=== PATIENT | female | born 2005 | race Caucasian/White ===

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

== ENCOUNTER 2023-01-19 13:37 | Emergency (ER) | payer BC, OTHER, SELFPAY ==
[2023-01-19 13:48] VITALS: BP 112/84; PULSE 86; RESP 16; TEMP 36.9; O2SAT 100
--- NOTE | 2023-01-19 13:50 | ED.EAR ---
HPI - Ear Problem General Chief complaint: Ear Stated complaint: HEARING LOSS/PAIN IN L EAR Time Seen by Provider: 01/19/23 13:50 Source: patient, RN notes reviewed and old records reviewed Mode of arrival: ambulatory Limitations: no limitations History of Present Illness HPI Narrative: 17 year old female who presents to [facility] care with complaints of deep pressure sensation to her left ear with decreased hearing and some ringing in her left ear. Patient denies any fevers, chills, sinus congestion or drainage, cough, or any drainage from her ear. Patient reports that she has not been swimming and she does not use Q-tips in her ears. Patient has used some ear wax remover, some tea tree oil and also some ear washes, has not taken any OTC medication for discomfort or used any OTC sinus medications. Patient reports that she has had decreased hearing in her left ear for several weeks but pressure feeling for past 3-4 days. MD Complaint: decreased hearing and other (pressure feeling, ringing) Location: left ear Duration: constant Discharge from ear: Reports no Related Data Home Medications Medication Instructions Recorded Confirmed sertraline 50 mg tablet 200 mg DAILY 07/21/19 10/10/21 lamotrigine 25 mg tablet mg 01/19/23 norethindrone (contraceptive) 0.35 mg 01/19/23 mg tablet trazodone 50 mg tablet mg 01/19/23 Allergies Allergy/AdvReac Type Severity Reaction Status Date / Time Sulfa (Sulfonamide Allergy Severe Swelling Verified 09/21/22 13:56 Antibiotics) of Lip/Tongue/Throat sulfamethoxazole Allergy Severe Swelling Verified 09/21/22 13:56 of Lip/Tongue/Throat Review of Systems Review of Systems: CONSTITUTIONAL: Denies malaise, chills, sweats, or fever. EYES: Denies visual changes, redness, or discharge. ENT: Reports no rhinorrhea, congestion, sinus pain, positive for left otalgia/pressure and no sore throat. CARDIOVASCULAR: Denies chest pain, palpitations, or edema. RESPIRATORY: Reports no cough.? Denies dyspnea. GASTROINTESTINAL: Denies abdominal pain, nausea, vomiting, diarrhea SKIN: Denies rash or itching. MUSCULOSKELETAL: Denies myalgia. NEUROLOGIC: Denies headache. All systems reviewed & are unremarkable except as noted in HPI and below PMFSH Past Medical History Medical History (Updated 01/19/23 @ 14:44 by Dasha Rios NP) Anxiety Depression History of sinus problem Surgical History Surgical History (Updated 01/19/23 @ 14:43 by Dasha Rios NP) History of tonsillectomy and adenoidectomy Social History Social History Smoking status: Never smoker Alcohol intake: never Substance use: never Substance use type: does not use Lack of Transportation: YES Lack of Food: Never True Current Housing: I Have Housing Concerned About Future Housing: No Difficulty Paying Gas/Electric Bills: No Difficulty Paying for Meds: No Currently Unemployed: YES Education: High School Diploma/GED Difficulty w/ Childcare or Family Care: No Gender identity (if verbalized by the patient): Female Comments At time of signature, agree with nursing past medical, surgical, social and family history. There is no relevant family history pertinent to the presenting complaint Exam Narrative: GENERAL: Well-appearing, well-nourished, and in no acute distress. HEAD: Normocephalic EYES: PERRLA, conjunctivae clear ENT: Nares clear, turbinates edematous and erythematous, clear discharge. Mucous membranes moist. TM pearly paulson with dull light reflex bilaterally; Left tragal tenderness, left ear canal red,fluid left TM. Oropharynx erythematous without lesions. Tonsils not present and throat without exudate, no drooling, no hoarseness, no trismus, uvula midline.post nasal drainage noted. NECK: Supple. No lymphadenopathy CHEST: Clear to auscultation, breath sounds equal. No wheezing, rhonchi, ral
== END 2023-01-19 14:09 | disposition home or self-care (01) ==
PROVIDERS: Emergency Provider Registered Nurse
DX: H69.92 Unspecified Eustachian tube disorder, left ear (principal); H60.502 Unspecified acute noninfective otitis externa, left ear; F41.9 Anxiety disorder, unspecified; F32.A Depression, unspecified
CPT/HCPCS: 99213; G0463

== ENCOUNTER 2023-04-06 13:21 | Emergency (ER) | payer BC, OTHER, SELFPAY ==
[2023-04-06] VITALS (9 sets, daily range): BP systolic 101–120; BP diastolic 60–91; PULSE 82–96; RESP 12–20; TEMP 36.9; O2SAT 99–100
--- NOTE | ~2023-04-06 | CT_ITS ---
EXAMINATION: CT brain wo con DATE: 04/06/2023 14:31 INDICATION: Seizure TECHNIQUE: Computed tomography (CT) of the head was performed without intravenous contrast. Sagittal and coronal reconstructions were performed. The mA was adjusted according to patient size. Iterative reconstruction technique was employed. The dose-length product was 605.33 mGy-cm. COMPARISON: head CT dated 05/31/22 FINDINGS: No acute intracranial hemorrhage, acute infarction or abnormal extra axial fluid collection. Ventricl es are normal and symmetric. No mass/mass effect. The orbits, paranasal sinuses and mastoid air cells are normal. IMPRESSION: 1. Normal head CT. Reviewed, dictated and finalized at location A. IMPRESSION: 1. Normal head CT.
--- NOTE | 2023-04-06 14:18 | ED.GENADULT ---
HPI - General Adult General Chief complaint: Seizure Stated complaint: tonic/clonic seizure Time Seen by Provider: 04/06/23 13:31 History of Present Illness HPI narrative: 18-year-old female history of absence seizures presents emergency department after having a suspected tonic-clonic seizure. Patient was in class when she had a seizure yesterday and declined transport to EMS. Patient had a second seizure today in class. Patient states that she was lowered to the ground and did not hit her head. Upon arrival to the emergency department patient is still postictal but denies any complaints. Related Data Home Medications Medication Instructions Recorded Confirmed sertraline 50 mg tablet 150 mg PO DAILY 07/21/19 01/19/23 lamotrigine 25 mg tablet 50 mg PO DAILY 01/19/23 01/19/23 norethindrone (contraceptive) 0.35 0.35 mg PO DAILY 01/19/23 01/19/23 mg tablet trazodone 50 mg tablet 25 mg PO DAILY 01/19/23 01/19/23 Allergies Allergy/AdvReac Type Severity Reaction Status Date / Time Sulfa (Sulfonamide Allergy Severe Swelling Verified 09/21/22 13:56 Antibiotics) of Lip/Tongue/Throat sulfamethoxazole Allergy Severe Swelling Verified 09/21/22 13:56 of Lip/Tongue/Throat Review of Systems Review of Systems: All systems reviewed & are unremarkable except as noted in HPI and below PMFSH Past Medical History Medical History (Updated 04/06/23 @ 16:59 by Marcel Hoffmann MD) Anxiety Depression History of sinus problem Surgical History Surgical History (Updated 01/19/23 @ 14:43 by Dasha Rios NP) History of tonsillectomy and adenoidectomy Social History Social History Smoking status: Never smoker Alcohol intake: never Substance use: never Substance use type: does not use Lack of Transportation: YES Lack of Food: Never True Current Housing: I Have Housing Concerned About Future Housing: No Difficulty Paying Gas/Electric Bills: No Difficulty Paying for Meds: No Currently Unemployed: YES Education: High School Diploma/GED Difficulty w/ Childcare or Family Care: No Gender identity (if verbalized by the patient): Female Exam Narrative: APPEARANCE: Well appearing, no pain, no distress, well-nourished. HEAD: normocephalic, atraumatic. EYES: PERRLA/EOMI, conjunctivae clear. NOSE: Normal no drainage EARS:TMS clear with good light reflex. THROAT: Pharynx clear, no exudate. NECK: Supple. No adenopathy, no masses. RESPIRATORY: Airway patent, respirations nonlabored. Clear to auscultation bilaterally, no rales, rhonchi, wheezing. CARDIOVASCULAR: Regular rate and rhythm without murmurs rubs or gallops. ABDOMINAL: Soft, nontender, nondistended, normal bowel sounds MUSCULOSKELETAL: Moves all extremities. Strength/ROM intact, No edema, No calf tenderness. NEURO: Alert but mildly confused. Cranial nerves II through XII intact. Good gait. Good coordination SKIN: Warm, dry. Normal Color Course Course Emergency Course: 18-year-old female present emergency department for evaluation of seizure. Patient does feel back to her baseline. Patient is afebrile with no leukocytosis and a stable hemoglobin. No significant electrolyte abnormalities. Patient's lamotrigine level is pending. Head CT showed no acute abnormalities. On reevaluation patient is more alert and appropriate. Patient states she is still having some soreness was offered medication for pain control but states that she prefers to be discharged to home. Vital Signs Vital signs: Vital Signs Temperature 98.4 F 04/06/23 13:20 Pulse Rate 84 04/06/23 13:20 Respiratory Rate 16 04/06/23 13:20 Blood Pressure 120/80 04/06/23 13:20 Pulse Oximetry 99 04/06/23 13:20 Oxygen Delivery Room Air 04/06/23 13:20 Temperature 98.4 F 04/06/23 13:20 Pulse Rate 82 04/06/23 14:32 Respiratory Rate 14 04/06/23 14:32 Blood Pressure 101/60
[2023-04-06 14:19] LABS: Basophils Absolute Auto 0.1 K/mm3 (0.0-0.1); Basophils Percent Auto 0.9 % (0.2-1.2); Eosinophils Absolute Auto 0.1 K/mm3 (0-0.3); Eosinophils Percent Auto 1.8 % (0-4.4); Hematocrit 43.9 % (37.0-47.0); Hemoglobin 14.4 g/dL (12.0-15.0); Immature Granulocyte Absolute 0.02 K/mm3 (0.00-0.031); Immature Granulocyte Percent A 0.3 % (0-0.5); Lymphocytes Absolute Auto 1.75 K/mm3 (0.9-3.2); Lymphocytes Percent Auto 26.3 % (18.3-44.2); Mean Corpuscular HGB Conc 32.8 g/dl (32-36); Mean Corpuscular Hemoglobin 30.3 pg (26-34); Mean Corpuscular Volume 92.2 fl (80-100); Mean Platelet Volume 10.7 fl (7.4-10.4); Monocytes Absolute Auto 0.6 K/mm3 (0.1-0.6); Monocytes Percent Auto 9.3 % (2.6-8.5); Neutrophils Absolute Auto 4.1 K/mm3 (1.3-6.7); Neutrophils Percent Auto 61.4 % (45.5-73.1); Platelet Count Result 303 k/mm3 (150-375); Red Blood Count 4.76 M/mm3 (4.2-5.4); Red Cell Distribution Width 12.2 % (11.5-14.5); White Blood Count 6.7 K/mm3 (4.5-10.0)
[2023-04-06 14:32] LABS: Alanine Aminotransferase 16 U/L (6-35); Albumin Level 4.7 g/dL (3.5-5.1); Alkaline Phosphatase 57 U/L (38-126); Anion Gap 7 mmol/L (8-16); Aspartate Amino Transferase 21 U/L (14-36); Bilirubin,Total 0.5 mg/dL (0.2-1.3); Blood Urea Nitrogen 7 mg/dL (7-17); Calcium 8.9 mg/dL (8.4-10.2); Carbon Dioxide 27 mmol/L (22-30); Chloride 103 mmol/L (98-107); Estimated CRCL calculation 87 ml/min; Estimated Glomerular Filt Rate > 60; Glucose 92 mg/dL (65-110); Potassium 3.8 mmol/L (3.4-5.0); Sodium 137 mmol/L (137-145)
[2023-04-06] MEDS: SODIUM CHLORIDE 0.9% IV 1,000 ML 999 ML IV CONT (14:38)
[2023-04-09 14:43] LABS: Lamotrigine Lamictal 0.9 mcg/mL (2.5-15.0)
== END 2023-04-06 17:07 | disposition home or self-care (01) ==
PROVIDERS: Emergency Provider Emergency Medicine; PCP Pediatrics
DX: G40.A09 Absence epileptic syndrome, not intractable, without status epilepticus (principal); F41.9 Anxiety disorder, unspecified; F32.A Depression, unspecified
CPT/HCPCS: 36415; 70450; 80053; 80175; 85025; 99284; J7030

== ENCOUNTER 2023-04-10 13:57 | Emergency (ER) | payer BC, OTHER, SELFPAY ==
[2023-04-10 13:55] VITALS: BP 115/75; PULSE 92; RESP 16; TEMP 36.7; O2SAT 100
[2023-04-10 14:01] VITALS: PULSE 83; O2SAT 99
[2023-04-10 15:10] VITALS: BP 94/55; PULSE 79; RESP 16; O2SAT 99
--- NOTE | 2023-04-10 15:35 | ED.SEIZURE ---
HPI - Seizure General Chief Complaint: Seizure Stated Complaint: seizure Time Seen by Provider: 04/10/23 15:24 History of Present Illness HPI Narrative: Pt had seizure today while sitting in class. Pt says she had seizure last week as well and was seen here. Pt takes lamotrigine and has not missed any doses. Pt feels fine now. Seizure History: Yes Related Data Home Medications Medication Instructions Recorded Confirmed sertraline 50 mg tablet 150 mg PO DAILY 07/21/19 01/19/23 lamotrigine 25 mg tablet 50 mg PO DAILY 01/19/23 01/19/23 norethindrone (contraceptive) 0.35 0.35 mg PO DAILY 01/19/23 01/19/23 mg tablet trazodone 50 mg tablet 25 mg PO DAILY 01/19/23 01/19/23 Allergies Allergy/AdvReac Type Severity Reaction Status Date / Time Sulfa (Sulfonamide Allergy Severe Swelling Verified 04/10/23 14:04 Antibiotics) of Lip/Tongue/Throat sulfamethoxazole Allergy Severe Swelling Verified 04/10/23 14:04 of Lip/Tongue/Throat Review of Systems Review of Systems: All systems reviewed & are unremarkable except as noted in HPI and below PMFSH Past Medical History Medical History (Updated 04/10/23 @ 17:10 by Jud Yeboah III, DO) Anxiety Depression History of sinus problem Surgical History Surgical History (Updated 01/19/23 @ 14:43 by Dasha Rios NP) History of tonsillectomy and adenoidectomy Social History Social History Smoking status: Never smoker Alcohol intake: never Substance use: never Substance use type: does not use Lack of Transportation: YES Lack of Food: Never True Current Housing: I Have Housing Concerned About Future Housing: No Difficulty Paying Gas/Electric Bills: No Difficulty Paying for Meds: No Currently Unemployed: YES Education: High School Diploma/GED Difficulty w/ Childcare or Family Care: No Gender identity (if verbalized by the patient): Female Exam Const: General: healthy appearing Nutritional Appearance: well nourished Orientation/consciousness: patient oriented x3 Limitations: no limitations Eyes: Pupils: Equal, round and reactive pupils present EOM: EOMs intact bilaterally Resp: Effort & Inspection: normal respiratory effort Auscultation: clear to auscultation bilaterally Cardio: Rate: regular rate Rhythm: regular rhythm GI: GI Palp: Yes Soft to palpation Auscultation: normal bowel sounds Skin: General skin exam: normal color Neuro: General: patient oriented x3, moves all extremities, no meningeal signs, no focal motor deficits and CN's II-XI intact bilaterally Cranial nerves: Yes Nystagmus not present Speech: normal speech Gait exam (Neuro): Normal gait present Extrem: General: normal to inspection Psych: Appearance: grossly normal Mental Status: mental status grossly normal Affect: normal affect Attitude: cooperative Course Vital Signs Vital signs: Vital Signs Temperature 98.0 F 04/10/23 13:55 Pulse Rate 92 04/10/23 13:55 Respiratory Rate 16 04/10/23 13:55 Blood Pressure 115/75 04/10/23 13:55 Pulse Oximetry 100 04/10/23 13:55 Oxygen Delivery Room Air 04/10/23 13:55 Temperature 98.0 F 04/10/23 13:55 Pulse Rate 78 04/10/23 17:31 Respiratory Rate 16 04/10/23 17:31 Blood Pressure 102/66 04/10/23 17:31 Pulse Oximetry 98 04/10/23 17:31 Oxygen Delivery Room Air 04/10/23 14:01 MDM - Seizure MDM Narrative Medical decision making narrative: could be seizure or pseudoseizure as pt being treated primarily by psychiatrist but is on seizure meds so will check labs. labs look ok so ok to d/c Lab Data 04/10/23 16:32 04/10/23 16:32 Labs: Lab Results 04/10/23 Range/Units 16:32 WBC 10.6 H (4.5-10.0) K/mm3 RBC 4.75 (4.2-5.4) M/mm3 Hgb 14.2 (12.0-15.0) g/dL Hct 43.4 (37.0-47.0) % MCV 91.4 (80-100) fl MCH 29.9 (26-34) pg MCHC 32.7 (32-36)
--- NOTE | 2023-04-10 16:27 | ECG_ITS ---
Measurements Intervals [place] Rate: 86 P: 56 [place]: 151 QRS: 43 QRSD: 84 T: 37 QT: 342 QTc: 411 Interpretive Statements SINUS RHYTHM COMPARED TO ECG 12/14/2022 02:15:23 NO SIGNIFICANT CHANGES Electronically Signed On 04-11-2023 19:43:48 CDT by Jasmin Harry M.D.
[2023-04-10 16:37] LABS: Basophils Absolute Auto 0.1 K/mm3 (0.0-0.1); Basophils Percent Auto 0.7 % (0.2-1.2); Eosinophils Absolute Auto 0.3 K/mm3 (0-0.3); Eosinophils Percent Auto 2.9 % (0-4.4); Hematocrit 43.4 % (37.0-47.0); Hemoglobin 14.2 g/dL (12.0-15.0); Immature Granulocyte Absolute 0.02 K/mm3 (0.00-0.031); Immature Granulocyte Percent A 0.2 % (0-0.5); Lymphocytes Absolute Auto 2.45 K/mm3 (0.9-3.2); Lymphocytes Percent Auto 23.2 % (18.3-44.2); Mean Corpuscular HGB Conc 32.7 g/dl (32-36); Mean Corpuscular Hemoglobin 29.9 pg (26-34); Mean Corpuscular Volume 91.4 fl (80-100); Monocytes Absolute Auto 0.7 K/mm3 (0.1-0.6); Monocytes Percent Auto 6.3 % (2.6-8.5); Neutrophils Percent Auto 66.7 % (45.5-73.1); Platelet Count Result 318 k/mm3 (150-375); Red Blood Count 4.75 M/mm3 (4.2-5.4); Red Cell Distribution Width 12.3 % (11.5-14.5); White Blood Count 10.6 K/mm3 (4.5-10.0)
[2023-04-10 16:49] LABS: Alanine Aminotransferase 18 U/L (6-35); Albumin Level 4.9 g/dL (3.5-5.1); Alkaline Phosphatase 59 U/L (38-126); Anion Gap 9 mmol/L (8-16); Aspartate Amino Transferase 22 U/L (14-36); Bilirubin,Total 0.5 mg/dL (0.2-1.3); Blood Urea Nitrogen 8 mg/dL (7-17); Calcium 9.4 mg/dL (8.4-10.2); Carbon Dioxide 27 mmol/L (22-30); Chloride 101 mmol/L (98-107); Estimated CRCL calculation 110 ml/min; Estimated Glomerular Filt Rate > 60; Glucose 91 mg/dL (65-110); Potassium 3.7 mmol/L (3.4-5.0); Sodium 137 mmol/L (137-145)
[2023-04-10 17:31] VITALS: BP 102/66; PULSE 78; RESP 16; O2SAT 98
== END 2023-04-10 17:32 | disposition home or self-care (01) ==
PROVIDERS: Emergency Provider Emergency Medicine; PCP Pediatrics
DX: G40.909 Epilepsy, unspecified, not intractable, without status epilepticus (principal); F41.9 Anxiety disorder, unspecified; F32.A Depression, unspecified
CPT/HCPCS: 36415; 80053; 85025; 93005; 99284

== ENCOUNTER 2023-09-08 13:22 | Emergency (ER) | payer BC, OTHER, SELFPAY ==
--- NOTE | ~2023-09-08 | CT_ITS ---
EXAMINATION: CT brain wo con INDICATION: Headache COMPARISON: 04/06/2023 TECHNIQUE: Standard unenhanced head CT. The dose-length product (DLP) was 605.33 mGy-cm. The mA was a djusted according to patient size. Iterative reconstruction technique was employed. FINDINGS: No intracranial hemorrhage, acute infarction, or abnormal mass lesion. The ventricles are n ormal. No abnormal mass effect or midline shift. The paulson-white matter differentiation is normal. The basal cisterns are patent. The orbits are normal. The paranasal sinuses, mastoids and calvarium are normal. IMPRESSION: 1. No acute intracranial abnormality. Reviewed, dictated and finalized at location F.
[2023-09-08 13:30] VITALS: BP 123/75; PULSE 93; RESP 18; TEMP 36.7; O2SAT 100
--- NOTE | 2023-09-08 15:03 | ED.HA ---
HPI - Headache General Chief Complaint: Headache Stated Complaint: migraine x5 days Time Seen by Provider: 09/08/23 15:03 Source: patient Mode of arrival: ambulatory Limitations: no limitations History of Present Illness HPI Narrative: Patient is a 18 y/o female who presents to the ED with c/o migraine VELEZ. Patient reports having persistent VELEZ for the past 5 days. She has hx of migraines, current VELEZ feels similar. Typically has migraines a few times per year. She has been taking Ubelry and Advil w/o relief. Took 2 advil this morning at 10 am. Pain is diffusely throughout head. Reports nausea, photophobia/phonophobia, mild dizziness. Denies focal weakness or numbness. Denies syncope. Denies vomiting. Denies vision changes. Patient does have history of seizure disorder and has up to 10 seizures per month. She takes lamotrigine daily and reports compliance with this. She does report having a seizure last night and states it lasted approximately 5 minutes. Was witnessed by family member. States her eyes were open during the seizure which is not normal for her. Patient sees Dr. Alejandro with Neurology. Related Data Home Medications Medication Instructions Recorded Confirmed sertraline 50 mg tablet 150 mg PO DAILY 07/21/19 01/19/23 lamotrigine 25 mg tablet 50 mg PO DAILY 01/19/23 01/19/23 norethindrone (contraceptive) 0.35 0.35 mg PO DAILY 01/19/23 01/19/23 mg tablet trazodone 50 mg tablet 25 mg PO DAILY 01/19/23 01/19/23 Allergies Allergy/AdvReac Type Severity Reaction Status Date / Time Sulfa (Sulfonamide Allergy Severe Swelling Verified 09/08/23 15:17 Antibiotics) of Lip/Tongue/Throat sulfamethoxazole Allergy Severe Swelling Verified 09/08/23 15:17 of Lip/Tongue/Throat Review of Systems Review of Systems: CONSTITUTIONAL: Denies fever, chills, or sweats. ENT: see HPI. GASTROINTESTINAL: See HPI. MUSCULOSKELETAL: Denies back pain, Neck pain. NEUROLOGIC: see HPI. All systems reviewed & are unremarkable except as noted in HPI and below PMFSH Past Medical History Medical History (Updated 09/08/23 @ 16:51 by Jaelyn Bustillos PA-C) Anxiety Depression History of sinus problem Migraines Seizure disorder Surgical History Surgical History History of tonsillectomy and adenoidectomy Social History Social History Smoking status: Never smoker Alcohol intake: never Substance use: never Substance use type: does not use Lack of Transportation: YES Lack of Food: Never True Current Housing: I Have Housing Concerned About Future Housing: No Difficulty Paying Gas/Electric Bills: No Difficulty Paying for Meds: No Currently Unemployed: YES Education: High School Diploma/GED Difficulty w/ Childcare or Family Care: No Gender identity (if verbalized by the patient): Female Exam Narrative: GENERAL: Well appearing, well-nourished, non-toxic, in no acute distress. HEAD: Normocephalic, atraumatic. EYES: PERRL/EOMI, conjunctivae clear bilaterally. No nystagmus. NECK: Supple. No meningeal signs. RESPIRATORY: Airway patent, respirations nonlabored. CARDIOVASCULAR: Regular rate and rhythm MUSCULOSKELETAL: Moves all extremities. No gross deformities. SKIN: Warm, dry, normal color. No rashes. NEURO: A&O X3. Speech clear. Follows commands. CN II-XII intact. Sensation grossly intact. Steady gait. No ataxic movements. Strength 5/5 in upper and lower extremities bilaterally. PSYCHIATRIC: Appropriate mood and affect. Normal interaction. Course Vital Signs Vital signs: Vital Signs Temperature 98.0 F 09/08/23 13:30 Pulse Rate 93 09/08/23 13:30 Respiratory Rate 18 09/08/23 13:30 Blood Pressure 123/75 09/08/23 13:30 Pulse Oximetry 100 09/08/23 13:30 Oxygen Delivery Room Air 09/08/23 13:30 Temperature 98.0 F 08/18
[2023-09-08] MEDS: ACETAMINOPHEN 500 MG TABLET 1000 MG PO (15:33)
[2023-09-08] MEDS: SODIUM CHLORIDE 0.9% IV 1,000 ML 999 ML IV CONT (15:34)
[2023-09-08] MEDS: diphenhydrAMINE HCl INJ 50 MG/ML VIAL 25 MG IV PUSH (15:35)
[2023-09-08] MEDS: KETOROLAC 30 MG/ML VIAL (*BKC) IV PUSH (15:36)
[2023-09-08] MEDS: dexAMETHasone SOD PHOS INJ 10 MG/ML 1 ML VIAL IV PUSH (15:37)
[2023-09-08] MEDS: METOCLOPRAMIDE HCL INJ 10 MG/2 ML VIAL IV PUSH (15:37)
[2023-09-08 16:01] VITALS: BP 125/66; PULSE 84; RESP 20; O2SAT 100
[2023-09-08 17:07] VITALS: BP 116/72; PULSE 90; RESP 18; TEMP 36.6; O2SAT 100
== END 2023-09-08 17:07 | disposition home or self-care (01) ==
LOC: ANHED 16:56
PROVIDERS: Emergency Provider Physician Assistant; PCP Family Medicine
DX: G43.909 Migraine, unspecified, not intractable, without status migrainosus (principal); G40.909 Epilepsy, unspecified, not intractable, without status epilepticus; F41.9 Anxiety disorder, unspecified; F32.A Depression, unspecified
CPT/HCPCS: 70450; 96361; 96374; 96375; 99284; A9270; J1100; J1200; J1885; J2765; J7030

== ENCOUNTER 2023-10-06 23:00 | Emergency (ER) | payer BC, OTHER, SELFPAY ==
[2023-10-06] VITALS (8 sets, daily range): BP systolic 113–132; BP diastolic 82–90; PULSE 76–97; RESP 13–19; TEMP 36.8; O2SAT 100
--- NOTE | ~2023-10-06 | XR_ITS ---
EXAMINATION: XR chest 1V portable 10/07/2023 00:55 INDICATION: Chest pain PROCEDURE: AP portable chest COMPARISON: No prior studies for comparison. FINDINGS: The lungs are clear. The cardiomediastinal silhouette is within normal limits. There are no pleural effusions. There is no pneumothorax suspected. IMPRESSION: 1: NO ACUTE CARDIOPULMONARY DISEASE. Reviewed, dictated and finalized at location A.
--- NOTE | 2023-10-06 23:32 | ECG_ITS ---
SEE SCANNED COPY FOR CONFIRMED REPORT MTDD
[2023-10-07] VITALS (18 sets, daily range): BP systolic 108–128; BP diastolic 75–83; PULSE 71–99; RESP 11–31; O2SAT 90–100
--- NOTE | 2023-10-07 00:06 | ED_ITS ---
HPI - General Adult General Chief complaint: Unspecified Stated complaint: numbness Time Seen by Provider: 10/06/23 23:30 History of Present Illness HPI narrative: This is a 18-year-old the female transitioning to male, who presents to emergency department complaining of 3 days worth of pressure like chest pain. Patient denies any recent trauma. He states the pain is aggravated by physical exertion and by sitting forward. The pain has been constant and waxing and waning. Complains of some dyspnea without obvious aggravation 5 physical exertion. He denies recent illness and has no other complaints at this time. Related Data Home Medications Medication Instructions Recorded Confirmed sertraline 50 mg tablet 150 mg PO DAILY 07/21/19 01/19/23 lamotrigine 25 mg tablet 50 mg PO DAILY 01/19/23 01/19/23 norethindrone (contraceptive) 0.35 0.35 mg PO DAILY 01/19/23 01/19/23 mg tablet trazodone 50 mg tablet 25 mg PO DAILY 01/19/23 01/19/23 Allergies Allergy/AdvReac Type Severity Reaction Status Date / Time Sulfa (Sulfonamide Allergy Severe Swelling Verified 09/08/23 15:17 Antibiotics) of Lip/Tongue/Throat sulfamethoxazole Allergy Severe Swelling Verified 09/08/23 15:17 of Lip/Tongue/Throat Review of Systems Review of Systems: CONSTITUTIONAL: Denies fever, chills, or sweats. ENT: Denies rhinorrhea, congestion, sore throat, or otalgia. CARDIOVASCULAR: Chest pain Denies palpitations, or edema. RESPIRATORY: Denies cough or dyspnea. GASTROINTESTINAL: Denies abdominal pain, nausea, vomiting, or diarrhea. GENITOURINARY: LMP 2 weeks ago. Denies dysuria or hematuria. SKIN: Denies rash or itching. MUSCULOSKELETAL: Denies back pain, joint pain, or myalgia. NEUROLOGIC: Denies headache, numbness, dizziness, or weakness. PSYCHIATRIC: Denies anxiety or depression. [facility] Past Medical History Medical History Anxiety Depression History of sinus problem Migraines Seizure disorder Surgical History Surgical History History of tonsillectomy and adenoidectomy Social History Social History Smoking status: Never smoker Alcohol intake: never Substance use: never Substance use type: does not use Lack of Transportation: YES Lack of Food: Never True Current Housing: I Have Housing Concerned About Future Housing: No Difficulty Paying Gas/Electric Bills: No Difficulty Paying for Meds: No Currently Unemployed: YES Education: High School Diploma/GED Difficulty w/ Childcare or Family Care: No Gender identity (if verbalized by the patient): Female Exam Narrative: GENERAL: Well-developed, well-nourished, and in no acute distress. HEAD: Normocephalic, atraumatic. EYES: PERRLA and EOMI. ENT: Nares clear, no rhinorrhea or epistaxis. Mucous membranes moist. Oropharynx without tonsillar hypertrophy exudate or other lesions. NECK: Supple. No JVD CHEST: Clear to auscultation. No respiratory distress. No wheezes rales or rhonchi. Pain reproducible on palpation. HEART: Regular rate and rhythm. No murmur or rub heard. Normal peripheral pulses. ABDOMEN: Soft, nontender, nondistended, normal active bowel sounds. EXTREMITIES: Normal range of motion. No edema. SKIN: Warm, dry, no rash. NEURO: Alert and oriented x3. No focal deficit. Moving all 4 limbs spontaneously PSYCH: Normal mood and affect. Course Course Emergency Course: 23:50 - Bedside cardiac ultrasound by me in the parasternal long-axis view does not show pericardial effusion. EPSS appears normal. 01:58 - CBC demonstrates slightly elevated hemoglobin of 15.7 but is otherwise unremarkable. Coags within normal limits. Chemistries unremarkable with a negative troponin. Heart score 1. Chest x-ray by my interpretation not concerning for acute cardiopulmonary process. I suspect the patient's symptoms may be related to pericarditis. Will discharge with naproxen and recommendation for primary care follow-up. I discussed the findings and recommendations with the patient. Discussed return and emergency precautions including signs/symptoms of ACS and respiratory distress. The patient voiced understanding and agreement with the plan. All questions answered to his satisfaction. Vital Signs Vital signs: Vital Signs Temperature 98.2 F 10/06/23 23:05 Pulse Rate 97 10/06/23 23:05 Respiratory Rate 18 10/06/23 23:05 Blood Pressure 132/90 10/06/23 23:05 Pulse Oximetry 100 10/06/23 23:05 Oxygen Delivery Room Air 10/06/23 23:05 Temperature 98.2 F 10/06/23 23:05 Pulse Rate 81 10/07/23 01:55 Respiratory Rate 14 10/07/23 01:55 Blood Pressure 128/79 10/07/23 01:55 Pulse Oximetry 100 10/07/23 01:55 Oxygen Delivery Room Air 10/06/23 23:05 Medical Decision Making MDM Narrative Medical decision making narrative: Plan: Labs, imaging, EKG, troponin, pain control, bedside ultrasound, reassess Differential Diagnosis Differential Diagnosis: Pericarditis, ACS, costochondritis, pneumothorax, metabolic abnormality, other Vital Signs Vital Signs: Vital Signs Temperature 98.2 F 10/06/23 23:05 Pulse Rate 97 10/06/23 23:05 Respiratory Rate 18 10/06/23 23:05 Blood Pressure 132/90 10/06/23 23:05 Pulse Oximetry 100 10/06/23 23:05 Oxygen Delivery Room Air 10/06/23 23:05 Temperature 98.2 F 10/06/23 23:05 Pulse Rate 81 10/07/23 01:55 Respiratory Rate 14 10/07/23 01:55 Blood Pressure 128/79 10/07/23 01:55 Pulse Oximetry 100 10/07/23 01:55 Oxygen Delivery Room Air 10/06/23 23:05 Lab Data 10/07/23 00:23 10/07/23 00:23 Labs: Lab Results 10/07/23 Range/Units 00:23 WBC 6.9 (4.5-10.0) K/mm3 RBC 5.25 (4.2-5.4) M/mm3 Hgb 15.7 H (12.0-15.0) g/dL Hct 47.0 (37.0-47.0) % MCV 89.5 (80-100) fl MCH 29.9 (26-34) pg MCHC 33.4 (32-36) g/dl RDW 12.6 (11.5-14.5) % Plt Count 279 (150-375) k/mm3 MPV 11.6 H (7.4-10.4) fl Immature Gran % (Auto) 0.4 (0-0.5) % Neut % (Auto) 53.5 (45.5-73.1) % Lymph % (Auto) 33.0 (18.3-44.2) % [place] % (Auto) 10.2 H (2.6-8.5) % Eos % (Auto) 2.0 (0-4.4) % Baso % (Auto) 0.9 (0.2-1.2) % Lymph # (Auto) 2.26 (0.9-3.2) K/mm3 [place] # (Auto) 0.7 H (0.1-0.6) K/mm3 Eos # (Auto) 0.1 (0-0.3) K/mm3 Baso # (Auto) 0.1 (0.0-0.1) K/mm3 Abs Immat Gran (auto) 0.03 (0.00-0.031) K/mm3 Absolute Neuts (auto) 3.7 (1.3-6.7) K/mm3 Absolute Nucleated RBC 0.000 (0.0-0.012) K/mm3 Nucleated RBC % 0.0 (0.0-0.2) % PT 12.8 (11.1-14.7) Seconds INR 0.9 Sodium 139 (137-145) mmol/L Potassium 4.1 (3.4-5.0) mmol/L Chloride 105 (98-107) mmol/L Carbon Dioxide 26 (22-30) mmol/L Anion Gap 8 (4-12) mmol/L BUN 8 (7-17) mg/dL Creatinine 0.70 (0.7-1.0) mg/dL Estim Creat Clear Calc 99 ml/min Estimated GFR > 60 (59 - ) Glucose 107 (65-110) mg/dL Calcium 9.6 (8.4-10.2) mg/dL Total Bilirubin 0.4 (0.2-1.3) mg/dL AST 25 (14-36) U/L ALT 24 (6-35) U/L Alkaline Phosphatase 70 (38-126) U/L Troponin I < 0.012 (0.000-0.034) ng/mL Total Protein 8.0 (6.3-8.2) g/dL Albumin 4.8 (3.5-5.1) g/dL Lipase 60 (23-300) U/L ECG Data EKG #1: Attestation: I personally reviewed and interpreted this ECG as follows: ECG completion date: 10/07/23 ECG completion time: 23:35 Prior ECG tracings: not available for review Interpretation: Sinus rhythm with 1 PAC, rate 70, normal axis, no ST segment elevations or T- wave inversions concerning for ischemia, normal intervals with QTC of 382. No change based on interpretation of previous EKG done March 2023. I am unable to view the previous EKG due to technical difficulties. Discharge Plan Discharge Clinical Impression: Chest pain Qualifiers: Chest pain type: unspecified Qualified Code(s): R07.9 - Chest pain, unspecified Pericarditis Qualifiers: Pericarditis type: unspecified type Chronicity: unspecified Qualified Code(s): I31.9 - Disease of pericardium, unspecified Patient Disposition: Home, Self-Care Condition: Stable Instructions: Antibiotic Form, Acute Pericarditis (ED) Additional Instructions: You were seen in the emergency department. I suspect your symptoms are related to pericarditis. I recommend following up with your primary care doctor. If you develop new or worsening chest pain, loss of consciousness, difficulty miguel thing, or if you have other emergent concerns for life, limb, or eyesight, return to the emergency department. Patient Language: Swedish Prescriptions: New naproxen 500 mg tablet 500 mg PO BID 7 Days Qty: 14 0RF No Action sertraline 50 mg tablet 150 mg PO DAILY trazodone 50 mg tablet 25 mg PO DAILY lamotrigine 25 mg tablet 50 mg PO DAILY norethindrone (contraceptive) 0.35 mg tablet 0.35 mg PO DAILY methylprednisolone [Medrol (Doe)] 4 mg tablets,dose pack See Rx Instructions .ROUTE .COMPLEX Qty: 21 0RF Rx Instructions: orally per package directions ofloxacin 0.3 % drops 5 drp LEFT EAR BID 7 Days Qty: 10 0RF Follow-up/Referrals: Omar,MD Michael [Primary Care Provider] - 2 Weeks Time of Disposition: 02:02
[2023-10-07] MEDS: ASPIRIN 81 MG CHEWABLE TABLET 324 MG PO (00:26)
[2023-10-07 00:35] LABS: Basophils Absolute Auto 0.1 K/mm3 (0.0-0.1); Basophils Percent Auto 0.9 % (0.2-1.2); Eosinophils Absolute Auto 0.1 K/mm3 (0-0.3); Hemoglobin 15.7 g/dL (12.0-15.0); Immature Granulocyte Absolute 0.03 K/mm3 (0.00-0.031); Immature Granulocyte Percent A 0.4 % (0-0.5); Lymphocytes Absolute Auto 2.26 K/mm3 (0.9-3.2); Mean Corpuscular HGB Conc 33.4 g/dl (32-36); Mean Corpuscular Hemoglobin 29.9 pg (26-34); Mean Corpuscular Volume 89.5 fl (80-100); Mean Platelet Volume 11.6 fl (7.4-10.4); Monocytes Absolute Auto 0.7 K/mm3 (0.1-0.6); Monocytes Percent Auto 10.2 % (2.6-8.5); Neutrophils Absolute Auto 3.7 K/mm3 (1.3-6.7); Neutrophils Percent Auto 53.5 % (45.5-73.1); Platelet Count Result 279 k/mm3 (150-375); Red Blood Count 5.25 M/mm3 (4.2-5.4); Red Cell Distribution Width 12.6 % (11.5-14.5); White Blood Count 6.9 K/mm3 (4.5-10.0)
[2023-10-07 00:42] LABS: Alanine Aminotransferase 24 U/L (6-35); Albumin Level 4.8 g/dL (3.5-5.1); Alkaline Phosphatase 70 U/L (38-126); Anion Gap 8 mmol/L (4-12); Aspartate Amino Transferase 25 U/L (14-36); Bilirubin,Total 0.4 mg/dL (0.2-1.3); Blood Urea Nitrogen 8 mg/dL (7-17); Calcium 9.6 mg/dL (8.4-10.2); Carbon Dioxide 26 mmol/L (22-30); Chloride 105 mmol/L (98-107); Estimated CRCL calculation 99 ml/min; Estimated Glomerular Filt Rate > 60; Glucose 107 mg/dL (65-110); Potassium 4.1 mmol/L (3.4-5.0); Sodium 139 mmol/L (137-145)
[2023-10-07 00:44] LABS: Lipase 60 U/L (23-300)
[2023-10-07 00:46] LABS: INR 0.9; Prothrombin Time 12.8 Seconds (11.1-14.7)
[2023-10-07 00:54] LABS: Troponin I < 0.012 ng/mL (0.000-0.034)
[2023-10-07] MEDS: KETOROLAC 30 MG/ML VIAL (*BKC) IV PUSH (01:27)
== END 2023-10-07 02:52 | disposition home or self-care (01) ==
PROVIDERS: Emergency Provider Preventive Medicine Aerospace Medicine; PCP Family Medicine
DX: R07.89 Other chest pain (principal); I31.9 Disease of pericardium, unspecified; G40.909 Epilepsy, unspecified, not intractable, without status epilepticus; F41.9 Anxiety disorder, unspecified; F32.A Depression, unspecified; R94.31 Abnormal electrocardiogram [ECG] [EKG]
CPT/HCPCS: 36415; 71045; 80053; 83690; 84484; 85025; 85610; 93005; 96374; 99284; A9270; J1885

== ENCOUNTER 2023-10-15 15:24 | Emergency (ER) | payer BC, OTHER, SELFPAY ==
--- NOTE | ~2023-10-15 | XR_ITS ---
EXAMINATION: XR chest 2V DATE: 10/15/2023 15:58 INDICATION: Chest pain. TECHNIQUE: Frontal and lateral views of the chest were obtained. COMPARISON: Chest single view 10/07/2023 FINDINGS: There is no pneumonia, pleural effusion, or pneumothorax. The heart is normal. IMPRESSION: 1. No acute cardiopulmonary disease. Reviewed, dictated and finalized at location E.
[2023-10-15 15:30] VITALS: BP 124/81; PULSE 93; RESP 18; TEMP 37.2; O2SAT 100
--- NOTE | 2023-10-15 15:34 | ECG_ITS ---
SEE SCANNED COPY FOR CONFIRMED REPORT MTDD
--- NOTE | 2023-10-15 15:39 | PC.NURSE ---
Pt reports was prescribed abx for recent pericarditis dx, finished course last night.
[2023-10-15 15:49] LABS: Basophils Percent Auto 0.5 % (0.2-1.2); Eosinophils Absolute Auto 0.1 K/mm3 (0-0.3); Eosinophils Percent Auto 1.5 % (0-4.4); Hematocrit 45.2 % (37.0-47.0); Hemoglobin 15.2 g/dL (12.0-15.0); Immature Granulocyte Absolute 0.01 K/mm3 (0.00-0.031); Immature Granulocyte Percent A 0.1 % (0-0.5); Lymphocytes Absolute Auto 2.25 K/mm3 (0.9-3.2); Lymphocytes Percent Auto 28.3 % (18.3-44.2); Mean Corpuscular HGB Conc 33.6 g/dl (32-36); Mean Corpuscular Volume 89.2 fl (80-100); Mean Platelet Volume 11.4 fl (7.4-10.4); Monocytes Absolute Auto 0.7 K/mm3 (0.1-0.6); Monocytes Percent Auto 8.5 % (2.6-8.5); Neutrophils Absolute Auto 4.9 K/mm3 (1.3-6.7); Neutrophils Percent Auto 61.1 % (45.5-73.1); Platelet Count Result 271 k/mm3 (150-375); Red Blood Count 5.07 M/mm3 (4.2-5.4); Red Cell Distribution Width 12.5 % (11.5-14.5)
[2023-10-15 15:58] LABS: Alanine Aminotransferase 30 U/L (6-35); Albumin Level 4.8 g/dL (3.5-5.1); Alkaline Phosphatase 68 U/L (38-126); Anion Gap 7 mmol/L (4-12); Aspartate Amino Transferase 23 U/L (14-36); Bilirubin,Total 0.6 mg/dL (0.2-1.3); Blood Urea Nitrogen 16 mg/dL (7-17); Calcium 9.7 mg/dL (8.4-10.2); Carbon Dioxide 30 mmol/L (22-30); Chloride 104 mmol/L (98-107); Estimated CRCL calculation 99 ml/min; Estimated Glomerular Filt Rate > 60; Glucose 126 mg/dL (65-110); Lipase 71 U/L (23-300); Potassium 3.6 mmol/L (3.4-5.0); Sodium 141 mmol/L (137-145)
[2023-10-15 15:59] LABS: INR 0.9; Prothrombin Time 12.4 Seconds (11.1-14.7)
[2023-10-15 16:00] LABS: Partial Thromboplastin Time 29.5 Seconds (22.3-36.8)
[2023-10-15 16:10] LABS: Troponin I < 0.012 ng/mL (0.000-0.034)
[2023-10-15] MEDS: BELLADONNA ALK/PHENOB ELIX 10 ML, MAG HYDROX/ALUMINUM HYD/SIMETH 30 ML, LIDOCAINE HCL 2... PO (16:16)
[2023-10-15 16:42] VITALS: PULSE 93; RESP 20; O2SAT 98
--- NOTE | 2023-10-15 16:51 | ED.GENADULT ---
HPI - General Adult General Chief complaint: Chest Pain Stated complaint: chest pain Time Seen by Provider: 10/15/23 15:41 History of Present Illness HPI narrative: Patient is a 18-year-old female transitioning to male who presents ER with central chest pain. Aching and constant. Was seen in the ER recently and diagnosed with possible pericarditis. Has not had an echo outside with bedside echo that showed no fluid. Normal EKGs. No negative troponins. Has been on b.i.d. naproxen without improvement. Raynaud medication today and came back for further evaluation. Cannot identify any aggravating or alleviating factors. Related Data Home Medications Medication Instructions Recorded Confirmed sertraline 50 mg tablet 150 mg PO DAILY 07/21/19 01/19/23 lamotrigine 25 mg tablet 50 mg PO DAILY 01/19/23 01/19/23 norethindrone (contraceptive) 0.35 0.35 mg PO DAILY 01/19/23 01/19/23 mg tablet trazodone 50 mg tablet 25 mg PO DAILY 01/19/23 01/19/23 Allergies Allergy/AdvReac Type Severity Reaction Status Date / Time Sulfa (Sulfonamide Allergy Severe Swelling Verified 10/15/23 15:33 Antibiotics) of Lip/Tongue/Throat sulfamethoxazole Allergy Severe Swelling Verified 10/15/23 15:33 of Lip/Tongue/Throat Review of Systems Review of Systems: All systems reviewed & are unremarkable except as noted in HPI and below Constitutional: Constitutional: Reports no additional constitutional complaints ENT: Reports system reviewed and no additional complaints, except as documented Cardiovascular: Cardiovascular: Reports chest pain, Denies rapid heart rate, Denies radiating jaw, neck or arm pain and Denies slow heart rate Respiratory: Respiratory: Reports no additional respiratory complaints Gastrointestinal: Gastrointestinal: Reports no additional gastrointestinal complaints [facility] Past Medical History Medical History Anxiety Depression History of sinus problem Migraines Seizure disorder Surgical History Surgical History History of tonsillectomy and adenoidectomy Social History Social History Smoking status: Never smoker Alcohol intake: never Substance use: never Substance use type: does not use Lack of Transportation: YES Lack of Food: Never True Current Housing: I Have Housing Concerned About Future Housing: No Difficulty Paying Gas/Electric Bills: No Difficulty Paying for Meds: No Currently Unemployed: YES Education: High School Diploma/GED Difficulty w/ Childcare or Family Care: No Gender identity (if verbalized by the patient): Female Exam Narrative: GENERAL: Well-appearing, well-nourished, and in no acute distress. HEAD: Normocephalic, atraumatic. ENT: Mucous membranes moist. CHEST: Clear to auscultation. No respiratory distress. HEART: Regular rate and rhythm. Normal peripheral pulses. ABDOMEN: Soft, nontender, nondistended. EXTREMITIES: Normal range of motion. No edema. SKIN: Warm, dry, no rash. NEURO: Alert and oriented x3. PSYCH: Normal mood and affect. Course Course Emergency Course: patient resting comfortably. Informed of results. Symptoms resolved with GI cocktail. Will start on PPI. Vital Signs Vital signs: Vital Signs Temperature 98.9 F 10/15/23 15:30 Pulse Rate 93 10/15/23 15:30 Respiratory Rate 18 10/15/23 15:30 Blood Pressure 124/81 10/15/23 15:30 Pulse Oximetry 100 10/15/23 15:30 Oxygen Delivery Room Air 10/15/23 15:30 Temperature 98.9 F 10/15/23 15:30 Pulse Rate 93 10/15/23 16:42 Respiratory Rate 20 10/15/23 16:42 Blood Pressure 124/81 10/15/23 15:30 Pulse Oximetry 98 10/15/23 16:42 Oxygen Delivery Room Air 10/15/23 15:30 Medical Decision Making Vital Signs Vital Signs: Vital Signs Temperature 98.9
[2023-10-15 17:33] VITALS: BP 118/76; PULSE 89; RESP 18; O2SAT 97
[2023-10-15 17:34] VITALS: O2SAT 100
[2023-10-15 18:01] VITALS: BP 106/76; PULSE 86; RESP 18; O2SAT 100
== END 2023-10-15 18:02 | disposition home or self-care (01) ==
PROVIDERS: Emergency Medicine; Emergency Provider Emergency Medicine; PCP Family Medicine
DX: K21.9 Gastro-esophageal reflux disease without esophagitis (principal); G40.909 Epilepsy, unspecified, not intractable, without status epilepticus; F41.9 Anxiety disorder, unspecified; F32.A Depression, unspecified
CPT/HCPCS: 36415; 71046; 80053; 83690; 84484; 85025; 85610; 85730; 93005; 99284; A9270

== ENCOUNTER 2025-02-25 13:39 | Outpatient (CLI) | payer BC, OTHER, SELFPAY ==
--- OUTSIDE RECORDS SUMMARY | 2025-02-25 15:12 | XMS_ITS | Clinical Summary ---
Author Organization [facility] Address [address] [place] [address] Phone Care Team Providers Care Mouse Breeder Name Role Phone Michael Nelson MD Primary Care Provider [phone] Kieran Viera MD Unavailable [phone] Allergies Active Allergy Reactions Criticality Noted Date Comments Gluten Meal Other (see Comments) Low 03/01/2024 Gluten ataxia cannot walk Gluten ataxia Sulfa Antibiotics Anaphylaxis,Rash,Isabel rtn ess of Breath High 2003 Wheat Extract Other (see Comments) High 10/19/2023 Medications albuterol 108 (90 Base) MCG/ACT Aerosol Solution take 2 Puffs by inhalation. 01/07/2020 Active ARIPiprazole (ABILIFY) 5 MG Tablet Take 7.5 mg by mouth. 02/10/2020 Active Atogepant 60 MG Tablet Take 60 mg by mouth. 09/11/2024 Active Cholecalciferol (Vitamin D-3) 25 MCG (1000 UT) Capsule Take 1,000 Units by mouth. Active lacosamide (VIMPAT) 100 MG Tablet Take 100 mg by mouth. 07/19/2024 Active Magnesium Citrate 125 MG Capsule Take 400 mg by mouth. Active Norethindrone, Contraceptive, 0.35 MG Tablet Take 0.35 mg by mouth. Active pantoprazole (PROTONIX) 20 MG Tablet Delayed Response Take 20 mg by mouth daily. 10/16/2023 Active Vitamin B-2 (RIBOFLAVIN) 100 MG Tablet Take 200 mg by mouth. Active traZODone (DESYREL) 50 MG Tablet Take 50 mg by mouth. 08/18/2020 Active Ubrogepant 100 MG Tablet Take 100 mg by mouth. 09/05/2023 Active cetirizine (ZyrTEC) 10 MG Tablet 10 mg every 24 hours by oral route. Active estradiol (ESTRACE) 0.1 MG/GM Cream Active gabapentin (NEURONTIN) 100 MG Capsule tid Active testosterone enanthate 200 MG/ML Solution INJECT 0.35 ML UNDER THE SKIN ONCE WEEKLY Active Active Problems Problem Noted Date Diagnosed Date TIA (transient ischemic attack) 09/26/2024 Family History Relation Name Status Comments Father Alive Mother Alive Sister Alive Social History Tobacco Use Types Packs/Day Years Used Date Smoking Tobacco: Never Smokeless Tobacco: Never Tobacco Cessation:Counseling Given: Not Answered Alcohol Use Standard Drinks/Week Comments Not Currently 0 (1 standard drink = 0.6 oz pur e alcohol) Sex and Gender Information Value Date Recorded Sex Assigned at Male 09/17/2024 2:01 PM CDT Legal Sex Female 1:59 PM CDT Gender Identity Transgender Male 09/17/2024 2:01 PM CDT Sexual Orientation Not on file Last Filed Vital Signs Vital Sign Reading Time Taken Comments Blood Pressure 100/68 10/17/2024 10:25 AM CDT Pulse 83 10/17/2024 10:25 AM CDT Temperature 36.7 C (98 F) 10/17/2024 10:25 AM CDT Respiratory Rate 18 10/17/2024 10:25 AM CDT Oxygen Saturation 100% 10/17/2024 10:25 AM CDT Inhaled Oxygen Concentration - - Weight 59.5 kg (131 lb 1.6 oz) 10/17/2024 10:25 AM CDT Height 165.1 cm (5' 5) 10/17/2024 10:25 AM CDT Body Mass Index 21.82 10/17/2024 10:25 AM CDT Plan of Treatment Health Maintenance Due Date Last Done Comments Hepatitis C Virus (HCV) Screening 2003 Human Papillomavirus (HPV) Immunization (1 - 3-dose series) 2018 Meningococcal B Immunization (1 of 2 - Standard) 2019 Influenza Immunization (#1) 2025 SARS-COV-2 Immunization ( season) 2025 10/19/2020, 09/28/2020 Respiratory Syncytial Virus (RSV) Immunization (Adult) (1 - 1-dose 75+ series) 2078 Hepatitis B Immunization Completed 004, 2003, 2003, Additional history exists Pneumococcal Immunization Combined Aged Out 04/22/2004, 01/15/2004, 2003, Additional history exists No longer eligible based on patient's age to complete this topic TdaP Immunization Completed 04/26/2013 Meningococcal Immunization (ACWY) Completed 05/19/2020, 01/19/2015 Rotavirus Immunization Aged Out No lo nger eligible based on patient's age to complete this topic Insurance [facility] Care Teams Mouse Breeder Relationship Specialty Start Date End Date Michael Nelson MD [address] [place] [address] PCP - General Family Medicine 09/17/24 Kieran Viera MD [address] [place] [phone] Consulting Physician Oncology 09/17/24
--- OUTSIDE RECORDS SUMMARY | 2025-02-25 15:12 | XMS_ITS | Clinical Summary ---
Author Organization [facility] Address [address] [place] [address] Care Team Providers Care Manufacturing Engineer Automotive Name Role Phone Dorothy Ceron MD Primary Care Provider [phone] Source Comments [facility],non-owned Affiliates and Associated Physician Practices is amultiple site organization consisting of ambulatory clinics and hospital sitesin [place], [place], [place] and [place]. This disclosure is being madepursuant to the Care Everywhere program and may not contain all information available regarding this patient. Last updated 18.[facility] Allergies Active Allergy Reactions Criticality Noted Date Comments Sulfa Drugs Shortness of Breath,Rash High 09/03/2009 Medications * Be aware that medications may not be up to date on this document. Alwaysverify current medications with the patient. Magnesium Citrate 125 MG CAPS Take 400 mg by mouth Active riboflavin 100 MG tablet Take 200 mg by mouth once daily Active Cholecalciferol (D3 ADULT PO) Take by mouth once daily Active SUMAtriptan (IMITREX) 25 MG tablet TAKE ONE TABLET BY MOUTH NEEDED DIRECTED. MAX OF 200MG/ 24 HOURS 9 tablet 8 Active AEROCHAMBER PLUS (AEROCHAMBER) Use as directed 1 Each 0 Active PROAIR HFA 108 (90 Base) MCG/ACT inhaler INHALE 2 PUFFS BY MOUTH EVERY 4 HOURS NEEDED FOR COUGH/ WHEEZING 8.5 g 1 0 Active esomeprazole (NEXIUM) 20 MG capsule Take 1 capsule by mouth daily before breakfast 30 capsule 0 Active ARIPiprazole (ABILIFY) 5 MG tablet Take 7.5 mg by mouth once daily 0 Active sertraline (ZOLOFT) 50 MG tablet Take 75 mg by mouth once daily 0 Active LATUDA 40 MG tablet Take 40 mg by mouth once daily 1 Active Active Problems Problem Noted Date Diagnosed Date Gastroesophageal reflux 02/09/2012 Acute cerebellar ataxia (psychosomatic) Chronic daily headache Resolved Problems Problem Noted Date Diagnosed Date Resolved Date Constipation 08/01/2011 02/09/2012 Abdominal pain, generalized 08/01/2011 02/09/2012 Bloating 08/01/2011 02/09/2012 Immunizations Immunization Administration Dates Next Due DTaP VACCINE IM (6wk-6yrs) 11/24/2008,,2003, 4,2003 HEP A PEDS 2 DOSE 01/23/2006,05/06/2005 HEP B VACCINE, PED/ADOL 2003,07/29,2003, 3 HIB BOOSTER 07/19/2004, 4,2003, 3 MENINGOCOCCAL ACWY (MCV4P) VAC IM 05/19/2020,08/2014 MMR 11/24/2008,04/22/2004 PNEUMOCOCCAL CONJ, PEDS 04/22/2004,01/14,2003, 3 POLIO IPV 11/24/2008, 4,2003, 3 PPD 04/22/2004 TDAP (7yrs+) 04/26/2013 VARICELLA 11/24/2008,07/19/2004 Family History Medical History Relation Name Comments GERD - Gastroesophageal Reflux Disease Brother Stomach ulcers Father Colon polyps Maternal Grandfather Asthma Maternal Grandmother Colon polyps Maternal Grandmother IBS Maternal Grandmother Cancer - Breast Paternal Grandmother Relation Name Status Comments Brother Father Maternal Grandfather Maternal Grandmother Paternal Grandmother Social History Tobacco Use Types Packs/Day Years Used Date Smoking Tobacco: Passive Smo ke Exposure - Never Smoker Smokeless Tobacco: Never Comments:mother smokes outsi de Alcohol Use Standard Drinks/Week Comments No 0 (1 standard drink = 0.6 oz pur e alcohol) Comments No Sex and Gender Information Value Date Recorded Sex Assigned at Not on file Legal Sex Female 6:55 AM SUPPORT CLERK Gender Identity Not on file Sexual Orientation Not on file Last Filed Vital Signs Vital Sign Reading Time Taken Comments Blood Pressure 118/74 05/19/2020 10:24 AM SUPPORT CLERK Pulse 80 05/19/2020 10:24 AM SUPPORT CLERK Temperature 36.1 C (97 F) 11/02/2020 11:07 AM CDT Respiratory Rate 14 10/13/2018 6:26 PM CDT Oxygen Saturation 99% 10/13/2018 3:32 PM CDT Inhaled Oxygen Concentration - - Weight 63 kg (138 lb 12.8 oz) 11/02/2020 11:07 A M CDT Height 163.8 cm (5' 4.5) 05/19/2020 10:24 AM CS T Body Mass Index - - Plan of Treatment Health Maintenance Due Date Last Done Comments HIV SCREENING 2018 HPV VACCINE (1 - 3-dose series) 2018 CHLAMYDIA/GONORRHEA SCREENING 2019 MENINGOCOCCAL (Group B) VACC INE SHARED DECISION-MAKING (1 of 2 - Standard) 2019 HEPATITIS C SCREENING 03/27/2021 DTAP/TDAP/TD VACCINES (7 - T d or Tdap) 04/26/2023 04/26/2013, 11/24/2008, 10/18/2004, Additional history exists PAP SMEAR 2024 DEPRESSION SCREENING 06/19/2024 COVID-19 VACCINE (3 - 2024-2 6 season) 2025 10/19/2020, 09/28/2020 INFLUENZA VACCINE (#1) 2025 ZOSTER VACCINE (1 of 2) 2053 HEPATITIS B VACCINE Completed 2003, 2003, 2003, Additional history exists PNEUMOCOCCAL VACCINE Completed 04/22/2004, 01/15/2004, 2003, Additional history exists HIB VACCINE Completed 07/19/2004, 09/18, 2003, Additional history exists MENINGOCOCCAL GROUPS A/C/Y/W VACCINE Completed 05/19/2020, 01/19/2015 Goals Goal Patient Goal Type Associated Problems Recent Progress Patient-Stated? Author Use safety retraint in car Lifestyle On track( 020 10:24 AM SUPPORT CLERK) Dasha Ellington RN Insurance [facility] Member Subscriber Plan / Payer (Ef fective 2018-Present) Name:Trudy Echavarria Relation to Subscriber:Child Name:NYLA ECHAVARRIA Subscriber ID:Not on file Payer ID:[id number] (NAIC) Type:PPO Address: [address] * Guarantor: TRUDY ECHAVARRIA Account Type Relation to Patient Date of Phone Billing Address Personal/Family 2005 [address] NYLA ECHAVARRIA [address] [place] [address] Advance Directives * Full Code (Latest Code Status on File) Date Activated Date Inactivated Comments 08/03/2016 3:54 PM 08/04/2016 6:50 PM Care Teams Manufacturing Engineer Automotive Relationship Specialty Start Date End Date Dorothy Ceron MD PCP - General Pediatrics 12/31/18
--- OUTSIDE RECORDS SUMMARY | 2025-02-25 15:12 | XMS_ITS | Clinical Summary ---
Author Organization [facility] Address [address] [place] [address] Care Team Providers Care Hand Spring Former Name Role Phone Michael Nelson MD Primary Care Provider [phone] Jean-Claude Alejandro MD Unavailable [phone] Allergies Active Allergy Reactions Criticality Noted Date Comments Gluten Other (See comments) Low 03/01/2024 Gluten ataxia Sulfa (Sulfonamide Antibiotics) Rash High 01/05/2018 Medications riboflavin (Vitamin B-2) 100 mg tabletIndications :Riboflavin Deficiency Take 2 tablets (200 mg total) by mouth daily Active SUMAtriptan (IMITREX) 50 mg tablet TAKE 1 TABLET(50 MG) BY MOUTH 1 TIME NEEDED FOR MIGRAINE HEADACHE. MAY REPEAT 1 TIME AFTER 2 HOURS NEEDED 9 tablet 3 0 Active inhalational spacing device spacer by Not Applicable route as directed 0 Active albuterol HFA (PROVENTIL HFA,VENTOLIN HFA,PROAIR HFA) 90 mcg/actuation inhaler Inhale 2 puffs every 4 (four) hours as needed (cough/wheeze) 0 Active traZODone (DESYREL) 50 mg tablet Take 1 tablet (50 mg total) by mouth nightly 30 tablet 1 Active lacosamide (VIMPAT) 100 mg tablet Take 1 tablet (100 mg total) by mouth 2 (two) times a day Active pantoprazole DR (PROTONIX) 20 mg EC tablet Take 1 tablet (20 mg total) by mouth daily Active norethindrone (MICRONOR) 0.35 mg tabletIndications : Contraception Take 1 tablet (0.35 mg total) by mouth daily Active Active Problems Problem Noted Date Diagnosed Date TIA (transient ischemic attack) 09/26/2024 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 Plan: -Order albuterol if needed. Assessment & Plan (10/12/2020 2:50 PM CDT): Assessment: No asthma symptoms currently. Plan: -Order albuterol if needed. Allergic rhinitis 10/12/2020 Assessment & Plan (10/12/2020 2:58 PM CDT): Assessment: No current symptoms Plan: -Continue home PRN zyrtec. Assessment & Plan (10/12/2020 2:52 PM CDT): Assessment: No current symptoms Plan: -Continue home PRN zyrtec. 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 Assessment & Plan (04/11/2024 10:39 AM CDT): The patient reports 1 month of multiple GTC-like episodes every single day with associated generalized fatigue + brain fog afterwards. They also describe difficulty walking due to this and initially used crutches but now cannot walk due to associated pain / weakness. Hx and Exam and previous imaging are somehow inconsistent with a diagnosis of epilepsy. Although patient says she was diagnosed with epilepsy and takes lacosamide 100 mg BID. - c/w lacosamide 100 BID - apreciate neuro recs: plan to follow up with OP neurology and pursue cvEEG - will discuss logistics with case management Assessment & Plan (08/17/2020 11:25 AM RN NAVIGATOR): Assessment: 15 y/o F with hx of anxiety, functional neurologic disorder presented to EU with auditory, Visual, and olfactory hallucinations, as well as SI. She endorsed that Shant took over and told her to cut herself with razor. In EU, CBC, CMP were unremarkable. UDS was negative. She was evaluated by psychiatry who recommended inpatient psychiatric admission. Differential diagnosis included acute psychosis, but more likely, functional neurologic disorder given long standing history. Neurology team consulted, but has low suspicion for autoimmune encephalitis. Will continue with neuro workup to rule out autoimmune encephalitis. Plan: -1:1 sitter -suicide precautions -behavioral health diet -psychiatry following -continue home Abilify 10mg once daily and Zoloft 100mg -[facility] -neuro consult, appreciate recommendations -follow EEG results -repeat ammonia -abdominal and pelvic ultrasound -follow up neuro lab work: Vit D, pyruvate kinase, copper, TSH receptor antibody, TPO, Thyroglobulin antibodies -consider psychology/child life consults PRN plan for agitation/aggresssion dangerous to self or others: ? If tolerating PO, administer each and wait 20 minutes before moving to next line 1st line: Benadryl 25mg q6 hours 2nd line: Haldol 5 mg q6 hours 3rd line: Ativan 2mg q6 hours ? If refusing oral Haldol 5 mg IM and Ativan 2 mg IM Q4H for acute agitation Repeat if no improvement after 20 minutes ? Alternative Plan First line: diphenhydramine 25 mg PO/IM Q6H PRN for acute agitation/EPS Second Line: Zyprexa 5 mg PO/IM Q4H PRN for acute agitation Third line: Zyprexa 5 mg PO/IM if still agitated after 20 minutes. Do not exceed 30mg/day of Zyprexa. PRN plan for acute dystonia/EPS ? IM/IV diphenhydramine 50 mg Assessment & Plan (08/16/2020 8:44 AM RN NAVIGATOR): Assessment: 15 y/o F with hx of anxiety, functional neurologic disorder presented to with auditory, Visual, and olfactory hallucinations, as well as SI. She endorsed that Shant took over and told her to cut herself with razor. In EU, CBC, CMP were unremarkable. UDS was negative. She was evaluated by psychiatry who recommended inpatient psychiatric admission. Differential diagnosis included acute psychosis, but more likely, functional neurologic disorder given long standing history. Neurology team consulted, but has low suspicion for autoimmune encephalitis. Nonetheless, she may require further work up to rule this out. Plan: -1:1 sitter -suicide precautions -behavioral health diet -psychiatry following -continue home Abilify 10mg once daily and Zoloft 100mg -Trazadone 50mg QHS started 08/14 -neuro consult (needs neuro workup complete prior to admission to psych facility) -obtain routine EEG Thursday 08/17 -follow up neuro lab work: Vit D, pyruvate kinase, copper, TSH receptor antibody, TPO, Thyroglobulin antibodies -consider psychology/child life consults PRN plan for agitation/aggresssion dangerous to self or others: ? If tolerating PO, administer each and wait 20 minutes before moving to next line 1st line: Benadryl 25mg q6 hours 2nd line: Haldol 5 mg q6 hours 3rd line: Ativan 2mg q6 hours ? If refusing oral Haldol 5 mg IM and Ativan 2 mg IM Q4H for acute agitation Repeat if no improvement after 20 minutes ? Alternative Plan First line: diphenhydramine 25 mg PO/IM Q6H PRN for acute agitation/EPS Second Line: Zyprexa 5 mg PO/IM Q4H PRN for acute agitation Third line: Zyprexa 5 mg PO/IM if still agitated after 20 minutes. Do not exceed 30mg/day of Zyprexa. PRN plan for acute dystonia/EPS ? IM/IV diphenhydramine 50 mg Assessment & Plan (08/15/2020 6:24 PM RN NAVIGATOR): Assessment: 15 y/o F with hx of anxiety, functional neurologic disorder presented to EU with auditory, Visual, and olfactory hallucinations, as well as SI. She endorsed that Shant took over and told her to cut herself with razor. In EU, CBC, CMP were unremarkable. UDS was negative. She was evaluated by psychiatry who recommended inpatient psychiatric admission. Differential diagnosis included acute psychosis, but more likely, functional neurologic disorder given long standing history. Neurology team consulted, but has low suspicion for autoimmune encephalitis. Nonetheless, she may require further work up to rule this out. Plan: -1:1 sitter -suicide precautions -behavioral health diet -psychiatry following -continue home Abilify 10mg once daily and Zoloft 100mg -start Trazadone 50mg QHS -neuro consult (needs neuro workup complete prior to admission to psych facility) -per neuro brain MRI w/ and w/o contrast, routine EEG and lab work -consider psychology/child life consults PRN plan for agitation/aggresssion dangerous to self or others: ? If tolerating PO, administer each and wait 20 minutes before moving to next line 1st line: Benadryl 25mg q6 hours 2nd line: Haldol 5 mg q6 hours 3rd line: Ativan 2mg q6 hours ? If refusing oral Haldol 5 mg IM and Ativan 2 mg IM Q4H for acute agitation Repeat if no improvement after 20 minutes ? Alternative Plan First line: diphenhydramine 25 mg PO/IM Q6H PRN for acute agitation/EPS Second Line: Zyprexa 5 mg PO/IM Q4H PRN for acute agitation Third line: Zyprexa 5 mg PO/IM if still agitated after 20 minutes. Do not exceed 30mg/day of Zyprexa. PRN plan for acute dystonia/EPS ? IM/IV diphenhydramine 50 mg Assessment & Plan (08/11/2020 9:31 PM RN NAVIGATOR): Had symptoms of stiffness in hand with pain in hand and arm within the past week. She reports current subjective memory problems and recent perceptual disturbances (hallucination-like). She also has history of intermittent ataxia-like symptoms, balance problems, difficulty walking, difficulty bearing weight on the left leg, stiffness of hand/arm with associated pain, and other pain symptoms. Hallucinations 08/04/2020 Overview (08/04/2020): Patient reports history of auditory, visual, tactile, and olfactory hallucinations. Assessment & Plan (10/13/2020 7:29 AM CDT): Assessment: 15 yo F with h/o depression, anxiety, functional neurologic disorder and migraine presents with increased hallucinations. Recently had medication changed from abilify to latuda 40 mg every day. Increased hallucinations with spirits haunting her and believes food and medications are poisoned. Found with a piece of glass endorsing she wanted to end it. Concern for acute psychosis. Labs ordered in EU to rule out organic cause. Evaluated by psychiatry and inpatient psychiatric admission for medication adjustment and stabilization. Zoloft dose increased in EU. [facility] psychiatry states patient's psychiatrist who specializes in psychosis believes her hallucinations are functional. Plan: -Continue trazadone, zoloft (increased to 200mg in EU) and latuda -Daily vitamin, B12 supplement, cholecalciferol. -suicide precautions -May walk in [place] -1:1 sitter -[facility] diet -Child Life consult -Psychology consult for coping skills -anticipate transfer this morning to [facility] in [place], [place] Assessment & Plan (10/12/2020 2:53 PM CDT): Assessment: 15 yo F with h/o depression, anxiety, functional neurologic disorder and migraine presents with increased hallucinations. Recently had medication changed from abilify to latuda 40 mg every day. Increased hallucinations with spirits haunting her and believes food and medications are poisoned. Found with a piece of glass endorsing she wanted to end it. Concern for acute psychosis. Labs ordered in EU to rule out organic cause. Evaluated by psychiatry and inpatient psychiatric admission for medication adjustment and stabilization. Zoloft dose increased in EU. [facility] psychiatry states patient's psychiatrist who specializes in psychosis believes her hallucinations are functional. Awaiting inpatient psychiatric placement. Plan: -Continue trazadone, zoloft (increased to 200mg in EU) and latuda -Daily vitamin, B12 supplement, cholecalciferol. -suicide precautions -October walk in [place] -1:1 sitter [facility] diet -Child Life consult -Psychology consult for coping skills Assessment & Plan (10/11/2020 8:28 AM CDT): Assessment: 15 yo F with h/o depression, anxiety, functional neurologic disorder and migraine presents with increased hallucinations. Recently had medication changed from abilify to latuda 40 mg every day. Increased hallucinations with spirits haunting her and believes food and medications are poisoned. Found with a piece of glass endorsing she wanted to end it. Concern for acute psychosis. Labs ordered in EU to rule out organic cause. Evaluated by psychiatry and inpatient psychiatric admission for medication adjustment and stabilization. Zoloft dose increased in EU. [facility] psychiatry states patient's psychiatrist who specializes in psychosis believes her hallucinations are functional. Awaiting inpatient psychiatric placement. Plan: -Continue trazadone, zoloft (increased to 200mg in EU) and latuda -Daily vitamin, B12 supplement, (hold mag supplement d/t non-form) -suicide precautions -[facility] [place] [facility] -Child Life consult -Psychology consult for coping skills Assessment & Plan (10/10/2020 3:05 PM CDT): Assessment: 15 yo F with h/o depression, anxiety, functional neurologic disorder and migraine presents with increased hallucinations. Recently had medication changed from abilify to latuda 40 mg every day. Increased hallucinations with spirits haunting her and believes food and medications are poisoned. Found with a piece of glass endorsing she wanted to end it. Concern for acute psychosis. Labs ordered in EU to rule out organic cause. Evaluated by psychiatry and inpatient psychiatric admission for medication adjustment and stabilization. Zoloft dose increased in EU. [facility] psychiatry states patient's psychiatrist who specializes in psychosis believes her hallucinations are functional. Plan: -Continue trazadone, zoloft (increased to 200mg in EU) and latuda -Daily vitamin, B12 supplement, (hold mag supplement d/t non-form) [place] -Psychology consult for coping skills Assessment & Plan (10/10/2020 4:43 AM CDT): Assessment: 15 yo F with h/o depression, anxiety, functional neurologic disorder and migraine presents with increased hallucinations. Recently had medication changed from abilify to latuda 40 mg every day. Increased hallucinations with spirits haunting her and believes food and medications are poisoned. Found with a piece of glass endorsing she wanted to end it. Concern for acute psychosis. Labs ordered in EU to rule out organic cause. Evaluated by psychiatry and inpatient psychiatric admission for medication adjustment and stabilization. Zoloft dose increased in EU. Plan: -Continue trazadone, zoloft (increased to 200mg in EU) and latuda -Daily vitamin, B12 supplement, (hold mag supplement d/t non-form) [place] Assessment & Plan (08/17/2020 10:32 AM RN NAVIGATOR): See A/P under Functional Neurologic symptom disorder Assessment & Plan (08/16/2020 8:44 AM RN NAVIGATOR): See A/P under Functional Neurologic symptom disorder Assessment & Plan (08/15/2020 10:42 AM RN NAVIGATOR): See A/P under Functional Neurologic symptom disorder Assessment & Plan (08/11/2020 9:10 PM RN NAVIGATOR): She reports increased auditory, visual, tactile, and olfactory sensory disturbances since June 2020. She has insight that these are not real, but they are still disturbing to her and she may intermittently feel unsafe and wonder whether they could be real. These do not seem to be clear psychotic-type hallucinations, and they may be related to anxiety and Functional Neurological Symptom Disorder. Paresthesia of skin 08/16/2019 Lumbar radiculopathy 08/16/2019 History of Migraine without aura and without status migrainosus, not intractable 06/21/2019 Assessment & Plan (10/13/2020 7:28 AM CDT): Assessment: Stable Plan: -Imitrex q 2 hours PRN, not to exceed 200mg daily -Acetaminophen or ibuprofen as needed -Continue home Magnesium. Assessment & Plan (10/12/2020 2:52 PM CDT): Assessment: Stable Plan: -Imitrex q 2 hours PRN, not to exceed 200mg daily -Acetaminophen or ibuprofen as needed -Continue home Magnesium. Assessment & Plan (10/11/2020 7:33 AM CDT): Assessment: Stable Plan: -Imitrex q 2 hours PRN, not to exceed 200mg daily -Acetaminophen or ibuprofen as needed Assessment & Plan (10/10/2020 3:05 PM CDT): Assessment: Stable Plan: -Imitrex q 2 hours PRN, not to exceed 200mg daily -Acetaminophen or ibuprofen as needed Assessment & Plan (10/10/2020 4:45 AM CDT): Assessment: Stable Plan: Imitrex q 2 hours PRN, not to exceed 200mg daily -Tyl/Ibu as needed Assessment & Plan (08/11/2020 9:14 PM RN NAVIGATOR): She reports she has not had any migraines for about 1 year. Functional weakness 06/21/2019 Epilepsy 05/02/2019 Abdominal pain, periumbilical 02/16/2019 Overview (02/16/2019): Added automatically from request for surgery [id number] Anxiety disorder 08/22/2018 Overview (08/11/2020): Shows some features of generalized anxiety and social anxiety, with some evidence of obsessive-compulsive features, illness anxiety, dissociative symptoms, and intermittent depressive symptoms. Assessment & Plan (08/11/2020 9:06 PM RN NAVIGATOR): She reports worries, anxious feelings, and mood symptoms have improved substantially in recent months, yet she is reporting an increase in dissociative symptoms with lapses in memory, intermittent difficulties with concentration, and feelings that she is not safe, as well as increased auditory, visual, olfactory, and tactile sensory disturbances. Acute cerebellar ataxia 01/05/2018 Chronic daily headache 01/05/2018 Adjustment disorder with anxiety 11/30/2016 GERD (gastroesophageal reflux disease) 2 Assessment & Plan (04/10/2024 11:51 AM CDT): C/w PPI home dose Immunizations Immunization Administration Dates Next Due DTaP 11/24/2008, 5,2003, 004,2003 Hep A, Pediatric 01/23/2006,05/06/2005 Hep B, Adolescent or Pediatric 4,2003,2003, 003 Hib (PRP-D) 07/19/2004, 4,2003, 003 IPV 11/24/2008, 4,2003, 003 MMR 11/24/2008,04/22/2004 Meningococcal MCV4P (Menactra) 01/19/2015 PPD TEST 04/22/2004 Pneumococcal Conjugate, Unspecified 09/2003,01/15/2004,2003, 003 Tdap 04/26/2013 Varicella 11/24/2008,07/19/2004 Surgical History Surgery Date Site/Laterality Comments TONSILLECTOMY AND ADENOIDECTOMY 06/19/2009 - 06/18/2010 Bilateral Mom reports tonsils and adenoids were removed December 2009 due to repeated strep throat infections. Mom denies that patient ever had ear tubes placed. Medical History Medical History Date Comments Cerebellar ataxia (HCC) Anxiety Migraine Functional neurological symptom disorder with ab normal movement Family History Medical History Relation Name Comments No Known Problems Father Hypertension Maternal Grandfather No Known Problems Mother Breast cancer Paternal Grandmother Diabetes Paternal Grandmother Anxiety disorder Sister Relation Name Status Comments Father Maternal Grandfather Mother Paternal Grandmother Sister Social History Tobacco Use Types Packs/Day Years Used Date Smoking Tobacco: Never Smokeless Tobacco: Never Alcohol Use Standard Drinks/Week Comments Never 0 (1 standard drink = 0.6 oz pur e alcohol) AUDIT-C Answer Date Recorded Q1: How often do you have a drink containing alc ohol? Never 08/11/2020 Average Number of Drinks Not on file 021 Frequency of Binge Drinking Not on file 07/21 Personal Safety Answer Date Recorded Have you ever been in or are you currently in a harmful physical or emotional relationship or is someone making you feel afraid or unsafe? Denies 04/10/2024 Comments No Sex and Gender Information Value Date Recorded Sex Assigned at Not on file Legal Sex Female 12:20 AM RN NAVIGATOR Gender Identity Male 04/10/2024 4:40 PM CDT Sexual Orientation Don't know 07/28/2020 6: 32 PM RN NAVIGATOR History Length Weight Head Circum Date/Time Gestation Age D/C Weight APGARs Delivery Method Feeding 19 (48.3 cm) 8 lb 10.5 oz (3.926 kg) 2005 39 wks 1min: 8 5m in : 8 10 mi n: 8 Vaginal, Spontaneous Bottle Fed - Formula Mother had swelling/water re tention, excessive weight gain, and gestational diabetes during the . Obstetrics History Last Filed Vital Signs Vital Sign Reading Time Taken Comments Blood Pressure 118/81 10/29/2024 9:44 AM CDT Pulse 78 10/29/2024 9:44 AM CDT Temperature 36.8 C (98.2 F) 10/29/2024 9:44 AM CDT Respiratory Rate 14 04/11/2024 7:00 AM CDT Oxygen Saturation 100% 10/29/2024 9:44 AM CDT Inhaled Oxygen Concentration - - Weight 59.8 kg (131 lb 12.8 oz) 10/29/2024 9:44 AM CDT Height 165.1 cm (5' 5) 10/29/2024 9:44 AM CDT Body Mass Index 21.93 10/29/2024 9:44 AM CDT Plan of Treatment Health Maintenance Due Date Last Done Comments Cervical Cancer Screening 2003 Depression Screening 2003 Hepatitis C Screening 2003 Pneumococcal vaccine <65 (1 of 1 - PPSV23, PCV20, or PCV21) 2009 04/22/2004, 01/15/2004, 2003, Additional history exists HPV Vaccines (1 - 3-dose series) 2018 Meningococcal B Vaccine (1 o f 2 - Standard) 2019 Regular Well Visit/Exam 18-64 2021 DTaP/Tdap/Td Vaccine (7 - Td or Tdap) 04/26/2023 04/26/2013, 11/24/2008, 10/18/2004, Additional history exists Covid-19 Vaccine (3 - 2024-2 6 season) 2025 10/19/2020, 09/28/2020 Influenza Vaccine (#1) 2025 Hepatitis B Screening Completed 2003 , 2003, 2003, Additional history exists Varicella Vaccines Completed 11/24/2008, 07/19/2004 Meningococcal Vaccine Completed 05/19/2020, 015 Goals Goal Patient Goal Type Associated Problems Recent Progress Patient-Stated? Author [facility] No change(06/26 12:43 PM RN NAVIGATOR) No Tiff Hi, PhD Note: Decrease anxious rumination [facility] On track(2018 12:43 PM RN NAVIGATOR) Tiff Santos, PhD Note: Increase functioning in daily activities Insurance [employer] [address] [place] [address] [facility] [employer] Member Subscriber Plan / Payer (Ef fective 2018-Present) Name:All Chaudhari Relation to Subscriber:Child Name:ITALIAALENYLA Date of :1975 (Home) Address: [address] [place] [address] Payer ID:[id number] (NAIC) Type:Unype Address: [address] [facility] ANTH ACCESS [facility] Advance Directives For more information, please contact: [phone] * Full Code (Latest Code Status on File) Date Activated Date Inactivated Comments 04/10/2024 1:09 PM 04/11/2024 9:12 PM * Full Code Date Activated Date Inactivated Comments 10/10/2020 3:52 AM 10/13/2020 1:52 PM * Full Code Date Activated Date Inactivated Comments 08/15/2020 5:14 PM 08/18/2020 5:48 PM Care Teams Hand Spring Former Relationship Specialty Start Date End Date Michael Nelson MD [address] [facility] [place] [address] PCP - General Family Medicine 03/01/24 Jean-Claude Alejandro MD [address] [address] Referring Physician Neurology 04/12/24
--- OUTSIDE RECORDS SUMMARY | 2025-02-25 15:12 | XMS_ITS | Clinical Summary ---
Author Organization [facility] Address [address] [facility] Attn: Epic Prelude ADT URVASHI MCCONNELL [address] Care Team Providers Care Sign Builder Supervisor Name Role Phone Michael Nelson MD Primary Care Provider [phone] Allergies Active Allergy Reactions Criticality Noted Date Comments Gluten Other (See Comments) Low 03/01/2024 Gluten ataxia cannot walk Sulfa (Sulfonamide Antibiotics) Rash High 01/05/2018 Medications lacosamide (VIMPAT) 100 mg tablet Take 100 mg by mouth 2 times daily. Active norethindrone, Contraceptive, 0.35 mg Tablet Take 0.35 mg by mouth daily. Active pantoprazole (PROTONIX) 20 mg Tablet, Delayed Release (E.C.) Take 20 mg by mouth daily. Active riboflavin, VITAMIN B2, 100 mg Tablet Take 200 mg by mouth daily. Active ondansetron (ZOFRAN ODT) 4 mg Tablet, Rapid Dissolve Take 1 Tablet (4 mg) by mouth every 8 hours as needed for Nausea or Emesis. Dissolve tablet on top of tongue, then swallow with saliva. 15 Tablet 5 Active HYDROcodone-jerson taminophen (NORCO) 5-325 mg tabletIndicatio ns:Lower abdominal pain Take 1 Tablet by mouth every 4 hours as needed for Pain, Severe. Max Daily Amount: 6 Tablets 15 Tablet 5 Active cephALEXin (KEFLEX) 500 mg capsule Take 1 Capsule (500 mg) by mouth 4 times daily for 7 days. 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 05/13/2024 Witnessed seizure-like activity 05/11/2024 Weakness of both lower extremities 05/11/2024 Nonverbal 05/11/2024 Unable to ambulate 05/11/2024 Left arm weakness 05/11/2024 Conversion disorder 05/11/2024 History of ataxia 05/11/2024 Encounters Date Type Department Care Team Description 02/23/2025 4:39 AM CDT - 02/23/2025 9:55 AM CDT [facility] Emergency Department [address] [place] [address] Byron Doty MD Pelvic pain syndrome (Primary Dx) Discharge Disposition: Home or Self Care 02/23/2025 Travel 02/18/2025 External Device Data STL ABSTRACTION Provider, Abstract 02/18/2025 External Device Data STL ABSTRACTION Provider, Abstract 02/12/2025 External Device Data STL ABSTRACTION Provider, Abstract 01/21/2025 External Device Data STL ABSTRACTION Provider, Abstract 01/21/2025 External Device Data STL ABSTRACTION Provider, Abstract 01/20/2025 1:14 AM CDT - 01/20/2025 7:48 AM CDT [facility] Emergency Department [address] [place] [address] Rip Thornton MD Gupta, Rahul, MD Acute cystitis without hematuria (Primary Dx); Lower abdominal pain Discharge Disposition: Home or Self Care 01/01/2025 External Device Data STL ABSTRACTION Provider, Abstract 01/01/2025 External Device Data STL ABSTRACTION Provider, Abstract 01/01/2025 External Device Data STL ABSTRACTION Provider, Abstract 01/01/2025 External Device Data STL ABSTRACTION Provider, Abstract 12/29/2024 7:30 AM CDT - 12/29/2024 10:04 AM CDT [facility] Emergency Department [address] [place] [address] Sinai Rosales MD Ovarian cyst, left (Primary Dx); Epigastric abdominal pain; Unintended weight loss; Early satiety Discharge Disposition: Home or Self Care 12/24/2024 External Device Data STL ABSTRACTION Provider, Abstract 12/17/2024 External Device Data STL ABSTRACTION Provider, Abstract 12/10/2024 External Device Data STL ABSTRACTION Provider, Abstract 12/10/2024 External Device Data STL ABSTRACTION Provider, Abstract from Last 3 Months Family History Medical History Relation Name Comments No Known Problems Father No Known Problems Mother Relation Name Status Comments Father Mother Social History Tobacco Use Types Packs/Day Years Used Date Smoking Tobacco: Never Passive Smoke Exposure: Never Smokeless Tobacco: Never Tobacco Cessation:Counseling Given: Not Answered Alcohol Use Standard Drinks/Week Comments Never 0 (1 standard drink = 0.6 oz pur e alcohol) Feeling Safe Answer Date Recorded Are you in a relationship wi th someone who hurts you emotionally and/or physically? No 02/23/2025 Food Insecurity Answer Date Recorded Patient needs follow up regardin 10/22/2024 Transportation Needs Answer Date Record ed Patient needs follow up regardin 10/22/2024 Housing Stability Answer Date Recorded Social/Environmental Concerns No concerns Utility Needs Answer Date Recorded Patient needs follow up regardin 10/22/2024 Comments No Sex and Gender Information Value Date Recorded Sex Assigned at Female 05/11/2024 12:18 AM HEAD CASHIER Legal Sex Female 3:21 AM HEAD CASHIER Gender Identity Male 05/11/2024 12:18 AM HEAD CASHIER Sexual Orientation Not on file Last Filed Vital Signs Vital Sign Reading Time Taken Comments Blood Pressure 110/69 02/23/2025 8:20 AM CDT Pulse 82 02/23/2025 8:20 AM CDT Temperature 36.5 C (97.7 F) 02/23/2025 1:38 AM CDT Respiratory Rate 18 02/23/2025 1:38 AM CDT Oxygen Saturation 100% 02/23/2025 8:20 AM CDT Inhaled Oxygen Concentration - - Weight 50.3 kg (111 lb) 02/23/2025 1:38 AM CDT Height 165.1 cm (5' 5) 02/23/2025 1:38 AM CDT Body Mass Index 18.47 02/23/2025 1:38 AM CDT Plan of Treatment Upcoming Encounters Date Type Department Care Team (Late st Contact Info) Description 03/13/2025 3:30 PM CDT Office Visit [facility] GASTROENTEROLOGY - [address] [facility] [address] [facility] [address] [place] [address] [place] [address] [place] [address] Health Maintenance Due Date Last Done Comments CHLAMYDIA SCREENING (ANNUAL) 11-24 YEARS 2014 HPV VACCINES (1 - 3-dose series) 2018 DTAP/TDAP/TD VACCINES (7 - T d or Tdap) 04/26/2023 04/26/2013, 11/24/2008, 10/18/2004, Additional history exists CERVICAL CANCER SCREENING 2024 HPV/Cotest (21-29) 2024 PAP SMEAR 2024 INFLUENZA VACCINE (#1) 2025 COVID-19 Vaccine (3 - 2024-2 6 season) 2025 10/19/2020, 09/28/2020 HEPATITIS B VACCINES Completed 2003, 2003, 2003, Additional history exists Procedures Procedure Name Priority Date/Time Associated Diagnosis Comments EXTRA TUBE (URINE SCANLON) Stat 02/23/2025 2:14 AM CDT URINALYSIS W/REFLEX MICROSCOPIC Stat 02/23/2025 2:14 AM CDT HCG QUALITATIVE, SERUM Stat 1:48 AM CDT COMPREHENSIVE METABOLIC PANEL Stat 02/23/2025 1:48 AM CDT CBC WITH DIFFERENTIAL Stat 02/23/2025 1:48 AM CDT US PELVIC TRANSVAGINAL + DOPPLER Stat 01/20/2025 7:[address] ABDOMEN PELVIS W CONTRAST Stat 01/20/2025 5:59 AM CDT EXTRA TUBE (URINE SCANLON) Stat 01/20/2025 3:02 AM CDT URINALYSIS W/REFLEX MICROSCOPIC Stat 01/20/2025 3:02 AM CDT HCG QUALITATIVE, URINE Stat 3:02 AM CDT EKG 12-LEAD Stat 01/20/2025 1:12 AM CDT COMPREHENSIVE METABOLIC PANEL Stat 01/20/2025 1:06 AM CDT CBC WITH DIFFERENTIAL Stat 01/20/2025 1:[address] ABDOMEN PELVIS W CONTRAST Stat 12/29/2024 8:28 AM CDT HCG QUALITATIVE, URINE Stat 2:12 AM CDT URINALYSIS W/REFLEX MICROSCOPIC Stat 12/29/2024 2:12 AM CDT LIPASE Stat 12/29/2024 1:24 AM CDT COMPREHENSIVE METABOLIC PANEL Stat 12/29/2024 1:24 AM CDT CBC WITH DIFFERENTIAL Stat 12/29/2024 1:24 AM CDT from Last 3 Months Results * EXTRA TUBE (URINE SCANLON) (02/23/2025 2:14 AM CDT) Only the most recent of2 resultswithin the time period is included. Urine URINE SPECIMEN OBTAINED BY CLEAN CATCH PROCEDURE / Unknown Collection / Unknown 02/23/2025 2:14 AM CDT 02/23/2025 2:14 AM CDT us Byron Doty MD URINE ORDERABLES Final Result [facility] Voices [facility]# [id number] [address] [place], [place] [id number] * (ABNORMAL) URINALYSIS WITH REFLEX MICROSCOPIC (02/23/2025 2:14 AM CDT) Only the most recent of3 resultswithin the time period is included. COLOR UA Yellow Pale to Dark Yellow 02/23/2025 2:30 AM CDT [facility] CLARITY UA Clear Clear 02/23/2025 2:30 AM CDT [facility] SPECIFIC GRAVITY UA 1.004 1.003 - 1.035 02/23/2025 2:30 AM CDT [facility] PH UA 6.0 5.0 - 8.0 02/23/2025 2:30 AM T [facility] LEUKOCYTE ESTERASE UA 1+(A) Negative 02/23/2025 2:30 AM CDT [facility] NITRITE UA Negative Negative 02/23/2025 2:30 AM CDT [facility] PROTEIN UA Negative Negative 02/23/2025 2:30 AM T [facility] GLUCOSE UA Negative Negative 02/23/2025 2:30 AM T [facility] KETONES UA Negative Negative 02/23/2025 2:30 AM CDT [facility] UROBILINOGEN UA Normal <2.0 mg/dL 2:30 AM CDT [facility] BILIRUBIN UA Negative Negative 02/23/2025 2:30 AM T [facility] BLOOD UA 3+(A) Negative 02/23/2025 2:30 AM T [facility] WBC UA 3-5(A) 0 - 2 /hpf 02/23/2025 2:30 AM CDT [facility] RBC UA 51-100(A) 0 - 2 /hpf 02/23/2025 2:30 AM T [facility] BACTERIA UA 1+(A) Negative /hpf 02/23/2025 2:30 AM CDT [facility] EPITHELIAL CELLS, URINE 0-5 0 - 5 /hpf 02/23/2025 2:30 AM T [facility] HYALINE CAST None Seen None Seen, 0-2 /lpf 02/23/2025 2:30 AM T [facility] Urine URINE SPECIMEN OBTAINED BY CLEAN CATCH PROCEDURE / Unknown Collection / Unknown 02/23/2025 2:14 AM CDT 02/23/2025 2:14 AM CDT Byron Doty MD URINE ORDERABLES Final Result Performing Organization Address City/[facility]/ZIP Co de Phone Number [facility]# [id number] [place] [address] * HCG QUALITATIVE, BLOOD (02/23/2025 1:48 AM CDT) HCG QUAL, BLOOD Negative Negative 02/23/2025 2:33 AM CDT [facility] Blood Venipuncture / Unknown 02/23/2025 1:48 AM CDT 02/23/2025 2:32 AM CDT Byron Doty MD CHEMISTRY ORDERABLES F inal Result Performing Organization Address City/[facility]/ZIP Co de Phone Number [facility]# [id number] [place] [address] * CBC WITH DIFFERENTIAL (02/23/2025 1:48 AM CDT) Only the most recent of3 resultswithin the time period is included. WBC 8.5 4.0 - 9.8 K/uL 02/23/2025 2:19 AM CDT [facility] RBC 4.67 3.90 - 4.90 M/uL 02/23/2025 2:19 AM CDT [facility] HEMOGLOBIN 14.2 11.8 - 14.8 g/dL 02/23/2025 2:19 AM CDT [facility] HEMATOCRIT 41.2 35.5 - 44.0 % 02/23/2025 2:19 AM CDT [facility] MCV 88.2 82.0 - 99.0 fL 02/23/2025 2:19 AM CDT [facility] MCH 30.4 27.2 - 32.6 pg 02/23/2025 2:19 AM CDT [facility] - [facility] MCHC 34.5 31.5 - 35.5 g/dL 02/23/2025 2:19 AM CDT [facility] - [facility] RDW 12.2 11.5 - 14.5 % 02/23/2025 2:19 AM CDT [facility] SERVICES [facility] RDW-STDEV 39.1 37.1 - 48.7 fL 02/23/2025 2:19 AM CDT [facility] - [facility] PLATELETS 341 140 - 350 K/uL 02/23/2025 2:19 AM CDT [facility] - [facility] MPV 11.3 9.3 - 12.4 fL 02/23/2025 2:19 AM CDT [facility] - [facility] NEUTROPHILS 49 % 02/23/2025 2:19 AM CDT [facility] - [facility] LYMPHOCYTES 40 % 02/23/2025 2:19 AM CDT [facility] - [facility] MONOCYTES 9 % 02/23/2025 2:19 AM CDT [facility] EOSINOPHILS 1 % 02/23/2025 2:19 AM CDT [facility] BASOPHILS 1 % 02/23/2025 2:19 AM CDT [facility] IMMATURE GRANULOCYTES 0 % 02/23/2025 2:19 AM CDT [facility] NEUTROPHIL ABSOLUTE 4.16 1.90 - 7.00 K/uL 02/23/2025 2:19 AM CDT [facility] LYMPHOCYTE ABSOLUTE 3.39 0.70 - 4.50 K/uL 02/23/2025 2:19 AM CDT [facility] MONOCYTE ABSOLUTE 0.75 0.10 - 1.30 K/uL 02/23/2025 2:19 AM CDT [facility] EOSINOPHIL ABSOLUTE 0.12 0.00 - 0.70 K/uL 02/23/2025 2:19 AM CDT [facility] BASOPHILS ABSOLUTE 0.08 0.00 - 0.20 K/uL 02/23/2025 2:19 AM CDT [facility] IMMATURE GRANULOCYTES ABSOLUTE 0.02 0.00 - 0.03 K/uL 02/23/2025 2:19 AM CDT [facility] Blood Venipuncture / Unknown 02/23/2025 1:48 AM CDT 02/23/2025 2:18 AM CDT Byron Doty MD HEMATOLOGY ORDERABLES Final Result [facility] CLIA# [id number] [place] [address] * COMPREHENSIVE METABOLIC PANEL (02/23/2025 1:48 AM CDT) Only the most recent of3 resultswithin the time period is included. SODIUM 139 136 - 145 mmol/L 02/23/2025 2:44 AM CDT [facility] POTASSIUM 3.6 3.4 - 5.1 mmol/L 02/23/2025 2:44 AM CDT [facility] CHLORIDE 102 98 - 107 mmol/L 02/23/2025 2:44 AM CDT [facility] CO2 24 22 - 29 mmol/L 02/23/2025 2:44 AM CDT [facility] CALCIUM 9.4 8.6 - 10.4 mg/dL 02/23/2025 2:44 AM CDT [facility] BUN 10 6 - 20 mg/dL 02/23/2025 2:44 AM CDT [facility] CREATININE 0.91 0.51 - 0.95 mg/dL 02/23/2025 2:44 AM CDT [facility] GLUCOSE 99 74 - 99 mg/dL 02/23/2025 2:44 AM T [facility] TOTAL PROTEIN 7.2 6.3 - 8.7 g/dL 02/23/2025 2:44 AM CDT [facility] ALBUMIN 4.5 3.5 - 5.2 g/dL 02/23/2025 2:44 AM CDT [facility] BILIRUBIN TOTAL 0.2 0.0 - 1.2 mg/dL 02/23/2025 2:44 AM CDT [facility] ALKALINE PHOSPHATASE 66 40 - 150 U/L 02/23/2025 2:44 AM CDT [facility] AST 14 0 - 33 U/L 02/23/2025 2:44 AM CDT [facility] ALT 16 0 - 33 U/L 02/23/2025 2:44 AM CDT [facility] GFR >60 >=60 mL/min/1.7 3 sq meter 02/23/2025 2:44 AM CDT [facility] Comment:eGFR calculated with 2020 CKD-EPI equation. Vegetarian diet, extremely high or low muscle mass, and may affect results. Cystatin C with Glomerular Filtration Rate is a suitable alternative for these patients. ANION GAP 13 8 - 16 mmol/L 02/23/2025 2:44 AM CDT [facility] Blood Venipuncture / Unknown 02/23/2025 1:48 AM CDT 02/23/2025 2:16 AM CDT Bryon Doty MD CHEMISTRY ORDERABLES F inal Result [facility] CLIA# [id number] [place] [address] * US PELVIC TRANSVAGINAL + DOPPLER (01/20/2025 7:19 AM CDT) Anatomical Region Laterality Modality Pelvis Ultrasound 01/20/2025 7:19 AM CDT Impressions 01/20/2025 7:23 AM CDT IMPRESSION: 1. No evidence of ovarian torsion. DICTATION LOCATION: Location 7 - [facility] Narrative 01/20/2025 7:23 AM CDT EXAMINATION: US PELVIC TRANSVAGINAL + DOPPLER DATE: 01/20/2025 7:19 AM HISTORY: Pelvic Pain; Acute cystitis without hematuria; Lower abdominal pain COMPARISON: CT from earlier today FINDINGS: Follicles are seen in the ovaries. There is a 3.2 cm right ovarian cyst. There is no evidence of ovarian torsion. The uterus appears normal. The endometrial thickness is 3 mm. Small volume free fluid is seen in the pelvis. Uterus: 7.5 x 3.5 x 4.7 cm Right ovary: 4.2 x 4.1 x 3.1 cm Left ovary: 4.1 x 2.1 x 1.4 cm Procedure Note Kenyon Reeves MD - 01/20/2025 EXAMINATION: US PELVIC TRANSVAGINAL + DOPPLER DATE: 01/20/2025 7:19 AM HISTORY: Pelvic Pain; Acute cystitis without hematuria; Lower abdominal pain COMPARISON: CT from earlier today FINDINGS: Follicles are seen in the ovaries. There is a 3.2 cm right ovarian cyst. There is no evidence of ovarian torsion. The uterus appears normal. The endometrial thickness is 3 mm. Small volume free fluid is seen in the pelvis. Uterus: 7.5 x 3.5 x 4.7 cm Right ovary: 4.2 x 4.1 x 3.1 cm Left ovary: 4.1 x 2.1 x 1.4 cm IMPRESSION: 1. No evidence of ovarian torsion. DICTATION LOCATION: [address] us Rip Thornton MD US ORDERABLES Final Result * CT ABDOMEN PELVIS W CONTRAST (01/20/2025 5:59 AM CDT) Only the most recent of2 resultswithin the time period is included. Anatomical Region Laterality Modality Abdomen Computed Tomogra phy 01/20/2025 5:40 AM CDT Impressions 01/20/2025 6:06 AM CDT IMPRESSION: 1. Mild bilateral hydronephrosis possibly due to mild bladder distention. DICTATION LOCATION: Location Narrative 01/20/2025 6:[address] ABDOMEN PELVIS W CONTRAST EXAM DATE: 01/20/2025 5:59 AM TECHNIQUE: Axial computed tomography of abdomen and pelvis with 80 cc Isovue-370 IV contrast . Coronal and sagittal reformats were obtained. The examination was performed with the adjustment of mA according to the patient size and/or use of iterative reconstruction technique. INDICATION: Abdominal pain, acute, nonlocalized, LLQ abdominal pain COMPARISON: 12/29/2024 FINDINGS: Basilar clear. No free air. No ascites Very large amount retained colonic stool. No abnormal bowel distention or evidence of obstruction. No focal wall edema. Appendix is normal Spleen, adrenal glands, liver, gallbladder, pancreas within normal limits. No abnormal biliary dilatation Normal symmetric nephrograms. Mild bilateral hydronephrosis without obstructing ureterolithiasis. There is mild bladder distention but without wall thickening. Small amount of free pelvic fluid is seen. A left adnexal cyst is markedly decreased in size if not resolved. A small right adnexal cyst measures 2.4 cm. These findings are consistent with physiologic change. There is no suspicious lytic or blastic osseous lesion Procedure Note Jacquelyn Paiz MD - 01/20/2025 CT ABDOMEN PELVIS W CONTRAST EXAM DATE: 01/20/2025 5:59 AM TECHNIQUE: Axial computed tomography of abdomen and pelvis with 80 cc Isovue-370 IV contrast . Coronal and sagittal reformats were obtained. The examination was performed with the adjustment of mA according to the patient size and/or use of iterative reconstruction technique. INDICATION: Abdominal pain, acute, nonlocalized, LLQ abdominal pain COMPARISON: 12/29/2024 FINDINGS: Basilar clear. No free air. No ascites Very large amount retained colonic stool. No abnormal bowel distention or evidence of obstruction. No focal wall edema. Appendix is normal Spleen, adrenal glands, liver, gallbladder, pancreas within normal limits. No abnormal biliary dilatation Normal symmetric nephrograms. Mild bilateral hydronephrosis without obstructing ureterolithiasis. There is mild bladder distention but without wall thickening. Small amount of free pelvic fluid is seen. A left adnexal cyst is markedly decreased in size if not resolved. A small right adnexal cyst measures 2.4 cm. These findings are consistent with physiologic change. There is no suspicious lytic or blastic osseous lesion IMPRESSION: 1. Mild bilateral hydronephrosis possibly due to mild bladder distention. DICTATION LOCATION: Location 4 us Rip Thornton MD CT ORDERABLES Final Result * HCG QUALITATIVE, URINE (01/20/2025 3:02 AM CDT) Only the most recent of2 resultswithin the time period is included. HCG QUAL URINE Negative Negative 01/20/2025 4:43 AM CDT [facility] COLOR UA Yellow Pale to Dark Yellow 01/20/2025 4:43 AM CDT [facility] CLARITY UA Clear Clear 01/20/2025 4:43 AM CDT [facility] Urine URINE SPECIMEN OBTAINED BY CLEAN CATCH PROCEDURE / Unknown Collection / Unknown 01/20/2025 3:02 AM CDT 01/20/2025 4:42 AM CDT Rip Thornton MD URINE ORDERABLES Final Result [facility] CLIA# [id number] [address] [place] [address] * EKG 12-LEAD (01/20/2025 1:12 AM CDT) 01/20/2025 1:12 AM CDT Narrative INTERFACE SYSTEM - 01/20/2025 6:50 [place] [address] Test Date: 2025-01-20 Pat Name: TRUDY [facility] Department: 92 Room: 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 Requested By: Order Number: [id number] Dimitri MD: Sebastian العراقي Measurements Intervals [place] Rate: 138 P: 0 DE: 0 QRS: 52 QRSD: 64 T: 66 QT: 364 QTc: 551 Interpretive Statements Sinus tachycardia Nonspecific ST abnormality Abnormal ECG No previous ECG available for comparison Electronically Signed On 01-20-2025 6:50:28 CDT by Sebastian العراقي Procedure Note Provider, Historical - 01/20/2025 [place] [address] Test Date: 2025-01-20 Pat Name: TRUDY [facility] Department: Room: 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 Requested By: Order Number: [id number] Reading MD: Sebastian العراقي Measurements Intervals [place] Rate: 138 P: 0 DE: 0 QRS: 52 QRSD: 64 T: 66 QT: 364 QTc: 551 Interpretive Statements Sinus tachycardia Nonspecific ST abnormality Abnormal ECG No previous ECG available for comparison Electronically Signed On 01-20-2025 6:50:28 CDT by Sebastian العراقي us Rip Thornton MD ECG ORDERABLES Final Result Performing Organization Address City/[facility] Co de Phone Number INTERFACE SYSTEM Refer to clinic/hospital department * LIPASE (12/29/2024 1:24 AM CDT) LIPASE 52 13 - 60 U/L 12/29/2024 2:26 AM CDT [facility] Blood Venipuncture / Unknown 12/29/2024 1:24 AM CDT 12/29/2024 1:38 AM CDT us Sinai Rosales MD CHEMISTRY ORDERABLES Final R esult Performing Organization Address City/[facility] Co de Phone Number [facility] CLIA# [id number] [place] [address] from Last 3 Months Insurance [facility] [employer] CHOICE [id number] [facility] TRADITIONAL Advance Directives For more information, please contact: [phone] * Full Code (Latest Code Status on File) Date Activated Date Inactivated Comments 05/11/2024 1:40 AM 05/16/2024 12:32 AM Care Teams Sign Builder Supervisor Relationship Specialty Start Date End Date Michael Nelson MD [address] [place] [phone] PCP - General Family Practice 05/11/24
== END 2025-02-25 13:40 | disposition home or self-care (01) ==
PROVIDERS: PCP Family Medicine; Visit Provider Obstetrics & Gynecology
DX: R10.2 Pelvic and perineal pain (principal)
CPT/HCPCS: 36415; 86850; 86900; 86901

== ENCOUNTER 2025-02-27 00:17 | Day surgery (SDC) | payer BC, OTHER, SELFPAY ==
--- NOTE | 2025-02-19 17:53 | PC.NURSE ---
Report to the Outpatient Waiting Room, entrance under the green pavilion located off [facility], at time 0730 on date 02/27/25. Planned Procedure Time: 0930.? Time changes happen often and if your time is changed the preop area will call you the afternoon before. - You and your visitor will be asked to self-screen and do not enter if you have any COVID symptoms. Please call surgeon if you need to reschedule. - A mask is optional within the hospital at this time. Patients may have clear liquids (water, carbonated beverages, clear teas, apple juice) until 3 hours prior to surgery with a maximum of 20 ounces. 0630 - No food from midnight until time of surgery and no smoking, or chewing tobacco (or any form of nicotine). No chewing gum, candy or mints. - Infants may have breast milk until 4 hours before surgery, infant formula 6 hours prior to surgery. - Children will be allowed to drink immediately following surgery.? If applicable, please bring a bottle or sippy cup to assist with drinking. Juice, water, soda, and popsicles are readily available.? For infants on formula, please bring formula the day of surgery.? Pacifiers are allowed. Take only the following medications with a SIP of water on the morning of surgery: CONTROL, LACOSAMIDE, DO NOT STOP ANY OF YOUR OTHER PRESCRIPTION MEDICATIONS PRIOR TO SURGERY EXCEPT THE FOLLOWING Hold all vitamins and supplements for 3 days per anesthesiologist. Medications to discontinue per physician VITAMINS AND SUPPLEMENTS Date to take last dose 02/24/25 Please no make-up, nail malay, hairspray, perfume, deodorant, or body powder the day of surgery.? No jewelry (including any body piercings) or valuables the day of surgery, leave them at home.? Please take a shower or bath the night before, or the morning of, surgery with an antibacterial soap.? Wear comfortable, loose fitting clothing.? Children are encouraged to wear pajamas. - Jewelry must be removed prior to entering the operating room.? Rings and piercings that are not removed may be cut off. - The hospital will not accept responsibility for valuables.? - Please leave all valuables, including medications, at home the day of surgery. If you are going home after surgery, a licensed waste collection driver must drive you home.? - NO public transportation without another adult if you receive anesthesia. - We recommend that an adult stay with you for 24 hours following discharge. - We also recommend that you do not drive, make important decision, drink alcoholic beverages, or take any drugs that were not prescribed by your health care provider for at least 24 hours after your discharge time. For Pediatric surgeries, we recommend two adults accompany the child home. Follow any additional instructions given to you from your surgeon. Telephone instructions given to PATIENT- TRUDY ECHAVARRIA and asked if any additional questions and then verbalized understanding. Patient advised to call surgeon office or pre surgery nurse liaison [phone] if any additional questions.
[2025-02-19 18:04] VITALS: BMI 18.4
--- NOTE | 2025-02-25 03:46 | PM.IMHP ---
H&P: HPI History of Present Illness Date/Time: 02/25/25 03:46 Chief Complaint: Pelvic pain with bilateral ovarian cysts Narrative: This is a 19-year-old 0 admitted for laparoscopy destruction of bilateral ovarian cyst. This patient has had pain discomfort dyspareunia she has an ultrasound showing small ovarian cysts. Significantly she has a strong family history of endometriosis. Risks and benefits of laparoscopy reviewed including not exclusive of , aspiration pneumonia, bleeding, transfusion, perforation injury to bowel, bladder, ureters, or other internal organs with need for open laparotomy. She received the ACOG handout entitled laparoscopy. She had all questions answered. She asked to proceed Review of Systems Review of Systems: All systems reviewed & are unremarkable except as noted in HPI and below Constitutional: Constitutional: Reports no additional constitutional complaints ENT: Reports system reviewed and no additional complaints, except as documented Cardiovascular: Cardiovascular: Reports chest pain, Denies rapid heart rate, Denies radiating jaw, neck or arm pain and Denies slow heart rate Respiratory: Respiratory: Reports no additional respiratory complaints Gastrointestinal: Gastrointestinal: Reports no additional gastrointestinal complaints [facility] Past Medical History Medical History Migraines Seizure disorder Anxiety History of sinus problem Depression Surgical History Surgical History History of tonsillectomy and adenoidectomy Social History Social History Smoking status: Never smoker Alcohol intake: never Substance use: never Substance use type: does not use Lack of Transportation: YES Lack of Food: Never True Current Housing: I Have Housing Concerned About Future Housing: No Difficulty Paying Gas/Electric Bills: No Difficulty Paying for Meds: No Currently Unemployed: YES Education: High School Diploma/GED Difficulty w/ Childcare or Family Care: No Gender identity (if verbalized by the patient): Female Spiritual care concerns: No Meds Home Medications and Allergies Home Medications ?Medication ?Instructions ?Recorded ?Confirmed ?Type norethindrone (contraceptive) 0.35 0.35 mg PO DAILY 01/19/23 02/19/25 History mg tablet trazodone 50 mg tablet 50 mg PO HS 01/19/23 02/19/25 History pantoprazole 20 mg tablet,delayed 20 mg PO HS 4 weeks #28 tabs 10/15/23 02/19/25 Rx release (Protonix) cholecalciferol (vitamin D3) 25 25 mcg PO DAILY 02/19/25 02/19/25 History mcg (1,000 unit) capsule (Vitamin D3) lacosamide 100 mg tablet 100 mg PO Q12H 02/19/25 02/19/25 History magnesium citrate 125 mg capsule 125 mg PO DAILY 02/19/25 02/19/25 History riboflavin (vitamin B2) 400 mg 400 mg PO DAILY 02/19/25 02/19/25 History tablet ubrogepant 100 mg tablet (Ubrelvy) 100 mg PO DAILY PRN migraine 02/19/25 02/19/25 History headache Allergies Allergy/AdvReac Type Severity Reaction Status Date / Time Sulfa (Sulfonamide Allergy Severe Swelling Verified 02/19/25 17:35 Antibiotics) of Lip/Tongue/Throat sulfamethoxazole Allergy Severe Swelling Verified 02/19/25 17:35 of Lip/Tongue/Throat gluten Allergy Nausea Verified 02/19/25 17:35 Exam Const: General: cooperative, healthy appearing and comfortable Nutritional Appearance: average body habitus HENMT: Head: normal to inspection Resp: Effort & Inspection: normal respiratory effort Cardio: Rate: regular rate Rhythm: regular rhythm Heart sounds: S1 normal heart sound present and S2 normal heart sound present GI: Inspection: normal to inspection : External Female Exam: normal external appearance Speculum Exam - Vagina: normal appearance of the vagina Speculum Exam - Cervix: normal appearance of the cervix Bimanual exam- vagina & uterus: Uterine tenderness Bimanual Exam- Adnexa, other: tender bilaterally Assessment and Plan Assessment and plan (1) Pelvic pain: Code(s): R10.2 - Pelvic and perineal pain Status: Acute (2) Bilateral ovarian cysts: Code(s): N83.201 - Unspecified ovarian cyst, right side; N83.202 - Unspecified ovarian cyst, left side Status: Acute Plan Proceed with diagnostic laparoscopy and destruction of bilateral ovarian cyst
[2025-02-27] VITALS (11 sets, daily range): BP systolic 93–120; BP diastolic 57–83; PULSE 54–87; RESP 12–18; TEMP 36.6; O2SAT 14–100
--- OUTSIDE RECORDS SUMMARY | 2025-02-27 00:20 | XMS_ITS | Encounter Summary ---
Author Organization [facility] - [facility] Address [facility] [place] [address] Care Team Providers Care Project Manager Industrial Name Role Phone Michael Nelson MD Primary Care Provider [phone] Encounter Details Date Type Department Care Team (Latest Contact Info) Description 12/10/2024 MyChart Message Enc [facility] Multispecialty Care - [facility] [address], [address] [place] [address] Jean-Claude Alejandro MD [address] [place] [address] Additional Notes Needed for the AFO Social History Tobacco Use Types Packs/Day Years Used Date Smoking Tobacco: Never Passive Smoke Exposure: Past Smokeless Tobacco: Never Alcohol Use Standard Drinks/Week Comments Never 0 (1 standard drink = 0.6 oz pur e alcohol) PHQ-2 Answer Date Recorded Patient Health Questionnaire-2 Score 0 06/22/2023 Comments No Sex and Gender Information Value Date Recorded Sex Assigned at Female 07/18/2023 2:37 PM TEAM MANAGER Legal Sex Male 9:07 PM CDT Gender Identity Transgender Male 07/18/2023 2:37 PM TEAM MANAGER Sexual Orientation Bisexual 07/18/2023 2: 37 PM TEAM MANAGER documented as of this encounter Progress Notes * Nathaly Jain MA - 12/10/2024 11:33 AM CDT Informed pt. Office note from 09/11/34 will be faxed to the number she provided documented in this encounter Plan of Treatment Upcoming Encounters Date Type Department Care Team (Late st Contact Info) Description 06/09/2025 8:00 AM TEAM MANAGER Office Visit [facility] - [address], [address] [place] [address] Jean-Claude Alejandro MD [address] [place] [id number] 07/08/2025 8:00 AM TEAM MANAGER Office Visit [facility] - [address], [address] [place] [address] Jean-Claude Alejandro MD [address] [place] [id number] documented as of this encounter Visit Diagnoses Not on filedocumented in this encounter Care Teams Project Manager Industrial Relationship Specialty Start Date End Date Michael Nelson MD [address] [place] [phone] PCP - General HOSPITALIST 06/22/23 documented as of this encounter
--- OUTSIDE RECORDS SUMMARY | 2025-02-27 00:20 | XMS_ITS | Clinical Summary ---
Author Organization [facility] Address [address] [place] [address] Care Team Providers Care Gearcase Assembler Name Role Phone Dorothy Ceron MD Primary Care Provider [phone] Source Comments [facility],non-owned Affiliates and Associated Physician Practices is amultiple site organization consisting of ambulatory clinics and hospital sitesin [place], [place], [place] and [place]. This disclosure is being madepursuant to the Care Everywhere program and may not contain all information available regarding this patient. Last updated 18.[facility] Allergies Active Allergy Reactions Criticality Noted Date [...] on file Legal Sex Female 6:55 AM STATIONARY STEAM ENGINEER Gender Identity Not on file Sexual Orientation Not on file Last Filed Vital Signs Vital Sign Reading Time Taken Comments Blood Pressure 118/74 05/19/2020 10:24 AM STATIONARY STEAM ENGINEER Pulse 80 05/19/2020 10:24 AM STATIONARY STEAM ENGINEER Temperature 36.1 C (97 F) 11/02/2020 11:07 [...] car Lifestyle On track( 020 10:24 AM STATIONARY STEAM ENGINEER) Dasha Ellington RN Insurance [facility] Member Subscriber Plan / Payer (Ef fective 2018-Present) Name:Trudy Echavarria Relation to Subscriber:Child Name:NYLA ECHAVARRIA Subscriber ID:Not on file Payer ID:[id number] (NAIC) Type:PPO Address: [id number] * Guarantor: TRUDY ECHAVARRIA Account Type Relation to Patient Date of Phone Billing Address Personal/Family [address] ECHAVARRIA [address] [place] [address] Advance Directives * Full Code (Latest Code Status on File) Date Activated Date Inactivated Comments 08/03/2016 3:54 PM 08/04/2016 6:50 PM Care Teams Gearcase Assembler Relationship Specialty Start Date End Date Dorothy Ceron MD PCP - General Pediatrics 12/31/18
--- OUTSIDE RECORDS SUMMARY | 2025-02-27 00:20 | XMS_ITS | Encounter Summary ---
Author Organization [facility] Address 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 Gender Identity Male 05/11/2024 12:18 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 Sexual Orientation Not on file documented as of this encounter Plan of Treatment Upcoming Encounters Date Type Department Care Team (Late st Contact Info) Description 03/13/2025 3:30 PM CDT Office Visit [facility] - [phone] [address] [place] [phone] [place] [address] [address] [place] [address] documented as of this encounter Visit Diagnoses Not on filedocumented in this encounter Care Teams Carpet Cutter Relationship Specialty Start Date End Date Michael Nelson MD [address] [place] [phone] PCP - General Family Practice 05/11/24 documented as of this encounter
--- OUTSIDE RECORDS SUMMARY | 2025-02-27 00:20 | XMS_ITS | Clinical Summary ---
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 -neuro consult, appreciate recommendations -follow EEG [...] mg Assessment & Plan (08/16/2020 8:44 AM BLEACH BOILER PULLER): Assessment: 15 y/o F with hx of [...] mg Assessment & Plan (08/15/2020 6:24 PM BLEACH BOILER PULLER): Assessment: 15 y/o F with hx of [...] mg Assessment & Plan (08/11/2020 9:31 PM BLEACH BOILER PULLER): Had symptoms of stiffness in hand with [...] and stabilization. Zoloft dose increased in EU. 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 Plan: -Continue trazadone, zoloft (increased to 200mg in EU) and latuda -Daily vitamin, B12 supplement, cholecalciferol. -suicide precautions -[place] walk in [place] -1:1 sitter -[facility] diet -Child Life consult -Psychology consult for coping skills -anticipate transfer this morning to [facility] in [place], [place] Assessment & Plan (10/12/2020 2:53 PM [...] and stabilization. Zoloft dose increased in EU. 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 Awaiting inpatient psychiatric placement. Plan: -Continue trazadone, zoloft (increased to 200mg in EU) and latuda -Daily vitamin, B12 supplement, cholecalciferol. -suicide precautions -October walk in [place] -1:1 sitter [facility] diet -Child Life consult -Psychology consult [...] and stabilization. Zoloft dose increased in EU. 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 Awaiting inpatient psychiatric placement. Plan: -Continue trazadone, zoloft (increased to 200mg in EU) and latuda -Daily vitamin, B12 supplement, (hold mag supplement d/t non-form) -suicide precautions -[place] [facility] [place] [facility] -[facility] diet -Child Life consult -Psychology consult [...] and stabilization. Zoloft dose increased in EU. 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 Functional weakness 06/21/2019 Epilepsy 05/02/2019 Abdominal pain, periumbilical 02/16/2019 Overview (02/16/2019): Added automatically from request for surgery [id number] Anxiety disorder 08/22/2018 Overview (08/11/2020): Shows some features of generalized anxiety and social anxiety, with some evidence of obsessive-compulsive features, illness anxiety, dissociative symptoms, and intermittent depressive symptoms. Assessment & Plan (08/11/2020 9:06 PM BLEACH BOILER PULLER): She reports worries, anxious feelings, and mood [...] on file Legal Sex Female 12:20 AM BLEACH BOILER PULLER Gender Identity Male 04/10/2024 4:40 PM CDT Sexual Orientation Don't know 07/28/2020 6: 32 PM BLEACH BOILER PULLER History Length Weight Head Circum Date/Time Gestation [...] [facility] No change(06/26 12:43 PM BLEACH BOILER PULLER) No Tiff Hi, PhD Note: Decrease anxious rumination [facility] On track(2018 12:43 PM BLEACH BOILER PULLER) Tiff Santos, PhD Note: Increase functioning in daily activities Insurance [facility] [place] [address] [facility] H[facility]/PPO Address: [address] [address] [place] [address] [facility] HMO/PPO Address: [address] [address] [place] [address] [employer] O[employer] Member Subscriber Plan / Payer (Ef fective 2018-Present) Name:All Chaudhari Relation to Subscriber:Child Name:ITALIAALENYLA Date of :1975 (Home) Address: [address] [place] [address] Payer ID:[id number] (NAIC) Type:castaclip Address: [address] [facility] HMO/PPO Address: [address] [address] [place] [address] [facility] ACCESS [facility] HMO/PPO Address: [address] [address] [place] [address] [facility] ANTH ACCESS [facility] HMO/PPO Address: [address] [address] [place] [address] Advance Directives For more information, please contact: [phone] * Full Code (Latest Code Status on File) Date Activated Date Inactivated Comments 04/10/2024 1:09 PM 04/11/2024 9:12 PM * Full Code Date Activated Date Inactivated Comments 10/10/2020 3:52 AM 10/13/2020 1:52 PM * Full Code Date Activated Date Inactivated Comments 08/15/2020 5:14 PM 08/18/2020 5:48 PM Care Teams Math Coach Relationship Specialty Start Date End Date Michael Nelson MD [address] [place] [address] PCP - General Family Medicine 03/01/24 Jean-Claude Alejandro MD [address] [address] Referring Physician Neurology 04/12/24
--- OUTSIDE RECORDS SUMMARY | 2025-02-27 00:20 | XMS_ITS | Clinical Summary ---
Author Organization [facility] Address [address] [place] [address] Phone Care Team Providers Care Scale Agent Name Role Phone Michael Nelson MD Primary Care Provider Kieran Viera MD Unavailable [phone] Allergies Active Allergy Reactions Criticality Noted Date [...] patient's age to complete this topic Insurance [facility] Care Teams Scale Agent Relationship Specialty Start Date End Date Michael Nelson MD [address] [place] [address] PCP - General Family Medicine 09/17/24 Kieran Viera MD [address] [place] [phone] Consulting Physician Oncology 09/17/24
--- OUTSIDE RECORDS SUMMARY | 2025-02-27 00:20 | XMS_ITS | Clinical Summary ---
Author Organization [facility] Address [address] [place] [address] Care Team Providers Care Senior Software Quality Analyst Name Role Phone Michael Nelson MD Primary Care Provider [phone] Allergies Active Allergy Reactions Criticality Noted Date Comments Gluten Meal Other (see comment) Low 03/01/2024 Gluten ataxia Misc. Sulfonamide Containing Compounds Anaphylaxis High 2003 Sulfa Antibiotics Anaphylaxis,Rash High 2003 Wheat Extract Other (see comment) High 10/19/2023 Medications traZODone (DESYREL) Tab 25 mg (50 mg split tab) Take 1 split tab (25 mg total) by mouth nightly at bedtime. Active Norethindrone, Contraceptive, 0.35 MG tablet Take 1 tablet by mouth daily. Active Cholecalciferol (VITAMIN D-3) 25 MCG (1000 UT) Cap Take 1,000 Units by mouth daily. Active MAGNESIUM CITRATE OR Take 100 mg by mouth daily. Active vitamin B-2 (RIBOFLAVIN) 100 MG tablet Take 1 tablet (100 mg total) by mouth daily. Active pantoprazole EC (PROTONIX) 20 MG tablet Take 1 tablet (20 mg total) by mouth daily. 4 Active SUMAtriptan (IMITREX) 100 MG tablet Take 1 tablet (100 mg total) by mouth 2 (two) times daily as needed. 4 Active ubrogepant (UBRELVY) 100 MG tabletIndication s:Migraine without aura, not intractable, without status migrainosus Take 1 tablet (100 mg total) by mouth 2 (two) times daily as needed. Max of 2 tablets (200 mg) in 24 hours 16 tablet 11 5 Active atogepant (QULIPTA) tabletIndication s:Migraine without aura, not intractable, without status migrainosus Take 1 tablet (60 mg total) by mouth daily. 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 60 tablet 4 5 Active Active Problems Problem Noted Date Diagnosed Date TIA (transient ischemic attack) 09/26/2024 Disturbance in speech 06/05/2024 History of ataxia 05/11/2024 Left arm weakness 05/11/2024 Nonverbal 05/11/2024 Recurrent conversion disorder 05/11/2024 Unable to ambulate 05/11/2024 Weakness of both lower extremities 05/11/2024 Muscle weakness 04/28/2024 Witnessed seizure-like activity ([facility] ) 04/10/2024 Acute cerebellar ataxia ([facility]) 2023 Chronic daily headache 10/19/2023 Migraine without aura 09/04/2023 Hyperlipidemia 06/04/2023 Chronic insomnia 05/02/2023 Chronic post-traumatic stress disorder Allergic rhinitis 10/12/2020 Intermittent asthma ([facility]) 10/12/2020 Suicide attempt ([facility]) 08/15/2020 Hallucinations 08/04/2020 Overview (11/27/2024): Patient reports history of auditory, visual, tactile, and olfactory hallucinations. Lumbar radiculopathy 08/16/2019 Paresthesia of skin 08/16/2019 Functional weakness 06/21/2019 Epilepsy ([facility]) 05/02/2019 Epileptic seizure ([facility]) 05/01/2019 Abdominal pain, periumbilical 02/16/2019 Overview (11/27/2024): Added automatically from request for surgery [id number] Anxiety disorder 08/22/2018 Overview (11/27/2024): Shows some features of generalized anxiety and social anxiety, with some evidence of obsessive-compulsive features, illness anxiety, dissociative symptoms, and intermittent depressive symptoms. Adjustment disorder with anxiety 11/30/2016 Gastroesophageal reflux 02/09/2012 Resolved Problems Problem Noted Date Diagnosed Date Resolved Date Conversion disorder with mot or symptom or deficit 05/13/2024 02/19/2025 [id number] transgender person 05/02/2023 03/11/2024 Encounters Date Type Department Care Team Description 02/19/2025 1:15 PM CDT Office Visit [facility] [address] [place] [address] Kriss Cabrales FNP Follow Up (MCT / Echo f/u ; TIA) 02/19/2025 Travel 02/04/2025 11:20 AM CDT Office Visit [facility] [address], [address] [place] [phone] Jean-Claude Alejandro MD Follow Up; Multiple Sclerosis; Seizures (Increase in number of seizures during sleep. ) 02/04/2025 Travel 01/07/2025 MyChart Message [facility] [address], [address] [place] [phone] Jean-Claude Alejandro MD Medication Refill 12/25/2024 MyChart Message Enc [facility] [address], [address] [place] [phone] Jean-Claude Alejandro MD Request to See a Clerical Supervisor 12/16/2024 Results Follow-Up [facility] [address] [place] [address] Gina Cardona RN USE ECHOCARDIOGRAM, CLINIC - OUTPATIENT EVENT RECORDER (ECG) UP TO 30 DAYS COMPLETE (Holter) 12/14/2024 9:46 AM CDT - 12/14/2024 11:59 PM CDT Hospital Encounter [facility] Non Invasive Cardiology [facility] [address] Phill Nowak MD Discharge Disposition: Home or Self Care (Routine Discharge) 12/14/2024 Travel 12/10/2024 MyChart Message Enc [facility] - [address], [address] [place] [phone] Jean-Claude Alejandro MD Additional Notes Needed for the AFO 12/04/2024 10:00 AM CDT Telephone [facility], [address] [address] Phill Nowak MD Holter Monitor 12/04/2024 Scan [employer] INFO SRVCS Scanned, [facility] 12/03/2024 MyChart Message [facility] [address], [address] [place] [phone] Jean-Claude Alejandro MD Physician Prescription for an AFO and Foot Orthotic 11/27/2024 2:00 PM CDT Office Visit [facility], [address] [address] Phill Nowak MD Consult; Neurologic Problem 11/27/2024 Travel from Last 3 Months Immunizations Immunization Administration Dates Next Due Dtap (Acel-Immune) 11/24/2008, 5,2003,07/29,2003 Hepatitis A (Havrix [address]) 01/23/2006, 005 Hepatitis B Pediatric 2003, 004,2003,04/01 Hib (Prohibit) 07/19/2004, 4,2003,06/02 MMR (MMRII) 11/24/2008,04/22/2004 Meningococcal (Menactra) 05/19/2020,01/19/2015 PFIZER COVID-19 (ORIGINAL FO RMULATION, PURPLE CAP) mRNA, LNP-S, PF, 30 MCG/0.3 ML DOSE 10/19/2020,09/28/2020 Pneumococcal (Generic) 04/22/2004,2003,2003,06/02 Polio IPV (Ipol) 11/24/2008, 4,2003,06/02 Tdap (Generic) 04/26/2013 Varicella (Varivax) 11/24/2008,07/19/2004 Family History Medical History Relation Comments Arthritis Father Hypertension Maternal Grandfather Asthma Maternal Grandmother COPD Maternal Grandmother Mental Health Maternal Grandmother anxiety Arthritis Maternal Uncle Diabetes Maternal Uncle Hypertension Maternal Uncle Mental Health Mother anxiety Cancer Paternal Grandfather Hypertension Paternal Grandfather Cancer Paternal Grandmother She had dez ast cancer 3 times Diabetes Paternal Grandmother Depression Sister Mental Health Sister anxiety and depr ession Miscarriages / Stillbirths Sister Had 1 after being diagnosed with endometriosis Relation Status Comments Father Alive Maternal Grandfather Maternal Grandmother Maternal Uncle Mother Alive Paternal Grandfather Paternal Grandmother Sister Social History Tobacco Use Types Packs/Day Years Used Date Smoking Tobacco: Never Passive Smoke Exposure: Past Smokeless Tobacco: Never Tobacco Cessation:Counseling Given: Yes Alcohol Use Standard Drinks/Week Comments Never 0 (1 standard drink = 0.6 oz pur e alcohol) PHQ-2 Answer Date Recorded Patient Health Questionnaire-2 Score 0 02/04/2025 Comments No Sex and Gender Information Value Date Recorded Sex Assigned at Female 07/18/2023 2:37 PM CADMIUM PLATER Legal Sex Male 9:07 PM CDT Gender Identity Transgender Male 07/18/2023 2:37 PM CADMIUM PLATER Sexual Orientation Bisexual 07/18/2023 2: 37 PM CADMIUM PLATER Last Filed Vital Signs Vital Sign Reading Time Taken Comments Blood Pressure 112/68 02/19/2025 1:15 PM CDT Pulse 84 02/19/2025 1:15 PM CDT Temperature 37 C (98.6 F) 09/11/2024 9:30 AM CDT Respiratory Rate 16 02/19/2025 1:15 PM CDT Oxygen Saturation 99% 02/19/2025 1:15 PM CDT Inhaled Oxygen Concentration - - Weight 51.3 kg (113 lb 3.2 oz) 02/19/2025 1:15 P M CDT Height 165.1 cm (5' 5) 02/19/2025 1:15 PM CDT Body Mass Index 18.84 02/19/2025 1:15 PM CDT Plan of Treatment Upcoming Encounters Date Type Department Care Team (Late st Contact Info) Description 06/09/2025 8:00 AM CADMIUM PLATER Office Visit [facility] - [address], [address] [phone] Jean-Claude Alejandro MD [address] [place] [phone] 07/08/2025 8:00 AM CADMIUM PLATER [facility] [address], [address] [place] [address] Jean-Claude Alejandro MD [address] [place] [phone] Health Maintenance Due Date Last Done Comments ASCVD LDL 2003 ASCVD Statin 2003 Cervical Cancer Screening Pap Smear (Age 21 to 29) Every 3 Years 2003 Cervical Cancer Screening 2003 Annual Physical 2006 HPV Vaccines (1 - 3-dose series) 2018 Meningococcal B Vaccine (1 of 2 - Standard) 2019 Hepatitis C 2021 Pneumococcal Vaccine: Pediatrics (0 to 5 Years) and At-Risk Patients (6 to 49 Years) (1 of 2 - PCV) 2022 04/22/2004, 01/15/2004, 2003, Additional history exists DTaP, Tdap and Td Vaccines (7 - Td or Tdap) 04/26/2023 04/26/2013, 11/24/2008, 10/18/2004, Additional history exists COVID-19 Vaccine ( - season) 2025 10/19/2020, 09/28/2020 Hepatitis B Vaccines Completed 2003, 2003, 2003, Additional history exists Meningococcal Vaccine Completed 05/19/2020, 015 PHQ-2 (Physician Perry) Completed 02/04/2025 RSV Immunizations Under 20 Months Aged Out No longer eligible based on patient's age to complete this topic Procedures Procedure Name Priority Date/Time Associated Diagnosis Comments EVENT RECORDER (ECG) UP TO 30 DAYS COMPLETE Routine 01/13/2025 3:14 PM CDT TIA (transient ischemic attack) USE ECHOCARDIOGRAM Routine 12/14/2024 10 :54 AM CDT TIA (transient ischemic attack) from Last 3 Months Results * CLINIC - OUTPATIENT EVENT RECORDER (ECG) UP TO 30 DAYS COMPLETE (Holter) (01/13/2025 3:14 PM CDT) Narrative [facility] - 01/13/2025 3:14 PM CDT EVENT MONITOR REPORT Patient Name: Trudy Chaudhari : 2005 [employer] F[employer] Date: 12-09-24 Performed At: [facility], [place] Interpreting Telegraph Mechanic: Dr. De La Cruz PCP: MICHAEL NELSON MD INDICATION: arrhythmia DURATION OF MONITORIN days NUMBER OF TRANSMISSIONS: none INTERPRETATION: Sinus rhythm, rate 45 - 177, average 73 No pauses NV 0.16,QRS 0.08,QTc 0.40 Low frequency PACs, less than 1 % burden Low frequency PVCs, less than 1 % burden PVCs with occasional bigeminy,trigeminy ,couplet No atrial fibrillation or flutter or significant SVT No patient- recorded events CONCLUSION: Sinus rhythm with no significant arrhythmia. Electronically signed by [employer] MONITORS 01/29/2025 7:53 AM us Phill Nowak MD CV VASCULAR ORDERABLES Kate l Result [facility] * USE ECHOCARDIOGRAM (12/14/2024 10:54 AM CDT) Anatomical Region Laterality Modality Cardiac Echocardiogram 12/14/2024 10:1 8 AM CDT Narrative 12/15/2024 2:49 PM CDT Echocardiography Report Pat.Name: TRUDY CHAUDHARI.ID: [id number] St.Date: 12/14/2024 Refer.MD: [id number] JUAN C HAMLIN EWDPROV EWDPROV Exam Time: 10:18:00 AM Study Type:ECHO WITH CARDIAC DOPPLER COMP Height: 65 in Weight: 125 lb BSA: 1.62 m2 Age: 10 2005,19Y Sex: M BP: 119/82 HR: 80 bpm Sonogrphr: Rosie Fisher [facility] Pat. Stat.:Outpatient Reason for Study:TIA Procedures: 2D, M-mode, Doppler, Color Flow, Intraveneous saline contrast was used to help determine presence of intracardiac shunting. The study quality is technically adequate. Race: W ++++++++++++++++++++++++++++++++++++ SUMMARY: ++++++++++++++++++++++++++++++++++++ Left ventricle is normal in size and systolic function Estimated EF of 60-65% Right ventricle is normal in size and systolic function No significant valve dysfunction. Unable to estimate pulmonary pressures. Negative bubble study ++++++++++++++++++++++++++++++++++++ FINDINGS: ++++++++++++++++++++++++++++++++++++ LV: The left ventricular size is normal. The left ventricular systolic function is normal. Estimated left ventricular ejection fraction is 60-65%. There is no left ventricular hypertrophy. Left ventricular diastolic function is normal. WM: Wall motion appears normal in all segments. RV: The right ventricle size is normal. The right ventricular function is normal. IVS: No evidence of ventricular septal defect. LA: Left atrial size is normal. RA: The right atrial size is normal. IAS: Atrial septum appears intact. The agitated saline injection showed no clear evidence of shunting into the left atrium, consistent with no patent foramen ovale. JATIN: No evidence of pericardial effusion. AO: Aorta is normal. SVn: Inferior vena cava is normal. Inferior vena cava shows >50% collapse with respiration consistent with normal right atrial pressure. AV: The aortic valve is trileaflet. No evidence of aortic valve stenosis. No evidence of aortic valve regurgitation. MV: No evidence of significant mitral regurgitation. No evidence of mitral stenosis. Mild thickening of mitral valve leaflets. PV: Trace pulmonic regurgitation. No evidence of pulmonic valve stenosis. Pulmonic valve not well visualized. TV: Structurally normal tricuspid valve. No evidence of tricuspid regurgitation. No evidence of tricuspid valve stenosis. ++++++++++++++++++++++++++++++++++++ MEASUREMENTS: ++++++++++++++++++++++++++++++++++++ DOPPLER LVOT LVOTpkPG 3 mmHg LVOTmnPG 1 mmHg LVOTpkVel 86.6 cm/s (70-110) LVOT SV 43 ml LVOT TVI 15.1 cm Right Atrium RA Press 3 mmHg Barrett's Disk 20 AV Forward Flow AV TVI 20.1 cm AV pkPG 4 mmHg AV pkVel 100 cm/s (100-170) Area (TVI) 2.13 cm2 (3-5)* AV mnPG 2 mmHg Area (Husam) 2.46 cm2 (3-5)* MV Forward Flow MV DeTm 195 msec MV pkE 80.9 cm/s (60-130) MV E/A 1.5 MV pkA 53 cm/s PV Forward Flow PV pkVel 102 cm/s (60-90)* PV AC 159 msec PV pkPG 4 mmHg Lat E' Lat e 18.5 cm/s Lat E/E' Lat E/e 4.4 Med E' Med e 12.2 cm/s Med E/E' Med E/e 6.6 Aortic Valve Aortic Valve Ar 1.31 Aortic Valve Ve 0.87 PV Antegrade Flow Acceleration Sl 570 cm/s2 Right Ventricle Right Ventricle 12.8 cm/s 2D Left Ventricle LVIDd 3.9 cm (3.6-5.2) LV ESV 30.2 ml LVIDs 2.5 cm (2.3-3.9) LV ESV 26.9 ml LngAxd 8.59 cm LVESV BP 28.5 ml LngAxd 8.59 cm LV EF 62.8 % LV EDV 81 ml LV EF 61.7 % LV EDV 70.3 ml LV EF BP 62.2 % LVEDV BP 75.4 ml LV SV 50.9 ml LngAxs 6.95 cm LV SV 43.4 ml LngAxs 6.96 cm LV SV BP 46.9 ml LVPW LVPWd 0.8 cm Ventricular Septum IVSd 0.7 cm Left Atrium LA VOLBP 30.3 ml Aorta Ao Rtd 2.6 cm (zsc 0.1) Ao Asc 2.6 cm (zsc 1.3) LVOT LVOT 1.9 cm LVOTArea 2.84 cm2 Ratios IVS LA Biplane LAVol I BP 18.7 ml/m2 RA Single Plane Right Atrium MO 9.02 mm Right Atrium Sy 18.6 ml Right Atrium Sy 46.6 mm Right Atrium Sy 11.5 ml/m2 Right Atrium Sy 10.2 cm2 Right Ventricle Right Ventricle 26 mm Right Ventricle 26 mm Major [place] 70 mm MMODE TA Tricuspid Annul 17.9 mm <Electronic Signature> 12/15/2024 02:49 PM Phill Nowak M.D. Procedure Note Phill Nowak MD - 12/15/2024 Echocardiography Report Pat.Name: TRUDY CHAUDHARI.ID: [id number] .Date: 12/14/2024 : [id number] JUAN C HAMLIN EWDPROV EWDPROV Exam Time: 10:18:00 AM Study Type:ECHO WITH CARDIAC DOPPLER COMP Height: 65 in Weight: 125 lb BSA: 1.62 m2 Age: 10 2005,19Y Sex: M BP: 119/82 HR: 80 bpm Sonogrphr: Rosie Fisher [facility] Pat. Stat.:Outpatient Reason for Study:TIA Procedures: 2D, M-mode, Doppler, Color Flow, Intraveneous saline contrast was used to help determine presence of intracardiac shunting. The study quality is technically adequate. Race: W ++++++++++++++++++++++++++++++++++++ SUMMARY: ++++++++++++++++++++++++++++++++++++ Left ventricle is normal in size and systolic function Estimated EF of 60-65% Right ventricle is normal in size and systolic function No significant valve dysfunction. Unable to estimate pulmonary pressures. Negative bubble study ++++++++++++++++++++++++++++++++++++ FINDINGS: ++++++++++++++++++++++++++++++++++++ LV: The left ventricular size is normal. The left ventricular systolic function is normal. Estimated left ventricular ejection fraction is 60-65%. There is no left ventricular hypertrophy. Left ventricular diastolic function is normal. WM: Wall motion appears normal in all segments. RV: The right ventricle size is normal. The right ventricular function is normal. IVS: No evidence of ventricular septal defect. LA: Left atrial size is normal. RA: The right atrial size is normal. IAS: Atrial septum appears intact. The agitated saline injection showed no clear evidence of shunting into the left atrium, consistent with no patent foramen ovale. JATIN: No evidence of pericardial effusion. AO: Aorta is normal. SVn: Inferior vena cava is normal. Inferior vena cava shows >50% collapse with respiration consistent with normal right atrial pressure. AV: The aortic valve is trileaflet. No evidence of aortic valve stenosis. No evidence of aortic valve regurgitation. MV: No evidence of significant mitral regurgitation. No evidence of mitral stenosis. Mild thickening of mitral valve leaflets. PV: Trace pulmonic regurgitation. No evidence of pulmonic valve stenosis. Pulmonic valve not well visualized. TV: Structurally normal tricuspid valve. No evidence of tricuspid regurgitation. No evidence of tricuspid valve stenosis. ++++++++++++++++++++++++++++++++++++ MEASUREMENTS: ++++++++++++++++++++++++++++++++++++ DOPPLER LVOT LVOTpkPG 3 mmHg LVOTmnPG 1 mmHg LVOTpkVel 86.6 cm/s (70-110) LVOT SV 43 ml LVOT TVI 15.1 cm Right Atrium RA Press 3 mmHg Barrett's Disk 20 AV Forward Flow AV TVI 20.1 cm AV pkPG 4 mmHg AV pkVel 100 cm/s (100-170) Area (TVI) 2.13 cm2 (3-5)* AV mnPG 2 mmHg Area (Husam) 2.46 cm2 (3-5)* MV Forward Flow MV DeTm 195 msec MV pkE 80.9 cm/s (60-130) MV E/A 1.5 MV pkA 53 cm/s PV Forward Flow PV pkVel 102 cm/s (60-90)* PV AC 159 msec PV pkPG 4 mmHg Lat E' Lat e 18.5 cm/s Lat E/E' Lat E/e 4.4 Med E' Med e 12.2 cm/s Med E/E' Med E/e 6.6 Aortic Valve Aortic Valve Ar 1.31 Aortic Valve Ve 0.87 PV Antegrade Flow Acceleration Sl 570 cm/s2 Right Ventricle Right Ventricle 12.8 cm/s 2D Left Ventricle LVIDd 3.9 cm (3.6-5.2) LV ESV 30.2 ml LVIDs 2.5 cm (2.3-3.9) LV ESV 26.9 ml LngAxd 8.59 cm LVESV BP 28.5 ml LngAxd 8.59 cm LV EF 62.8 % LV EDV 81 ml LV EF 61.7 % LV EDV 70.3 ml LV EF BP 62.2 % LVEDV BP 75.4 ml LV SV 50.9 ml LngAxs 6.95 cm LV SV 43.4 ml LngAxs 6.96 cm LV SV BP 46.9 ml LVPW LVPWd 0.8 cm Ventricular Septum IVSd 0.7 cm Left Atrium LA VOLBP 30.3 ml Aorta Ao Rtd 2.6 cm (zsc 0.1) Ao Asc 2.6 cm (zsc 1.3) LVOT LVOT 1.9 cm LVOTArea 2.84 cm2 Ratios IVS LA Biplane LAVol I BP 18.7 ml/m2 RA Single Plane Right Atrium MO 9.02 mm Right Atrium Sy 18.6 ml Right Atrium Sy 46.6 mm Right Atrium Sy 11.5 ml/m2 Right Atrium Sy 10.2 cm2 Right Ventricle Right Ventricle 26 mm Right Ventricle 26 mm Major [place] 70 mm MMODE TA Tricuspid Annul 17.9 mm <Electronic Signature> 12/15/2024 02:49 PM Phill Nowak M.D. us Phill Nowak MD ECHO Final Resul t from Last 3 Months Insurance [facility] Care Teams Senior Software Quality Analyst Relationship Specialty Start Date End Date Michael Nelson MD [address] [place] [address] PCP - General HOSPITALIST 06/22/23
--- OUTSIDE RECORDS SUMMARY | 2025-02-27 00:20 | XMS_ITS | Clinical Summary ---
Author Organization [facility] Address [address] Attn: Epic Prelude ADT URVASHI MCCONNELL [address] Care Team Providers Care Store Assistant Name Role Phone Michael Nelson MD Primary Care Provider [phone] Allergies Active Allergy Reactions Criticality Noted Date [...] tongue, then swallow with saliva. 15 Tablet 12/29/2024 Active HYDROcodone-jerson taminophen (NORCO) 5-325 mg tabletIndicatio ns:Lower abdominal pain Take 1 Tablet by mouth every 4 hours as needed for Pain, Severe. 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 05/13/2024 Witnessed seizure-like activity 05/11/2024 Weakness of both lower extremities 05/11/2024 Nonverbal 05/11/2024 Unable to ambulate 05/11/2024 Left arm weakness 05/11/2024 Conversion disorder 05/11/2024 History of ataxia 05/11/2024 Encounters Date Type Department Care Team Description 02/25/2025 External Device Data STL ABSTRACTION Provider, Abstract 02/25/2025 External Device Data STL ABSTRACTION Provider, Abstract 02/25/2025 External Device Data ST[facility] ABSTRACTION Provider, Abstract 02/23/2025 4:39 AM CDT - 02/23/2025 9:55 AM CDT Formerly [facility] Emergency Department [address] [place] [address] Byron Doty MD Pelvic pain syndrome (Primary [...] AM CDT - 01/20/2025 7:48 AM CDT [facility] Emergency Department [address] [place] [address] Rip Thornton MD Gupta, Rahul, MD Acute cystitis without hematuria (Primary Dx); Lower abdominal pain Discharge Disposition: Home or Self Care 01/01/2025 External Device Data STL ABSTRACTION Provider, Abstract 01/01/2025 External Device Data STL ABSTRACTION Provider, Abstract 01/01/2025 External Device Data STL ABSTRACTION Provider, Abstract 01/01/2025 External Device Data STL ABSTRACTION Provider, Abstract 12/29/2024 7:30 AM CDT - 12/29/2024 10:04 AM CDT [facility] Emergency Department [address] [place] [address] Sinai Rosales MD Ovarian cyst, left (Primary [...] Sex Assigned at Female 05/11/2024 12:18 AM GLASS INSTALLER Legal Sex Female 3:21 AM GLASS INSTALLER Gender Identity Male 05/11/2024 12:18 AM GLASS INSTALLER Sexual Orientation Not on file Last Filed [...] Description 03/13/2025 3:30 PM CDT Office Visit [facility] GASTROENTEROLOGY - [address] [address] [facility] [address] [address] [address] [facility] [address] [place] [address] [place] [address] [facility] [address] [place] [address] Health Maintenance Due Date Last [...] Byron Doty MD URINE ORDERABLES Final Result [facility]# [id number] [address] [place], [place] [id number] * (ABNORMAL) URINALYSIS WITH REFLEX MICROSCOPIC (02/23/2025 2:14 AM CDT) Only the most recent of3 resultswithin the time period is included. COLOR UA Yellow Pale to Dark Yellow 02/23/2025 2:30 AM CDT [facility] CLARITY UA Clear Clear 02/23/2025 2:30 AM CDT [facility] [employer] [facility] SPECIFIC GRAVITY UA 1.004 1.003 - 1.035 02/23/2025 2:30 AM CDT [facility] PH UA 6.0 5.0 - 8.0 02/23/2025 2:30 AM CDT [facility] LEUKOCYTE ESTERASE UA 1+(A) Negative 02/23/2025 2:30 AM CDT [facility] NITRITE UA Negative Negative 02/23/2025 2:30 AM CDT [facility] [employer] [facility] PROTEIN UA Negative Negative 02/23/2025 2:30 AM T [facility] GLUCOSE UA Negative Negative 02/23/2025 2:30 AM CDT [facility] [employer] [facility] KETONES UA Negative Negative 02/23/2025 2:30 AM CDT [facility] [employer] [facility] UROBILINOGEN UA Normal <2.0 mg/dL 2:30 AM CDT [facility] BILIRUBIN UA Negative Negative 02/23/2025 2:30 AM CDT [facility] [employer] [facility] BLOOD UA 3+(A) Negative 02/23/2025 2:30 AM CDT [facility] WBC UA 3-5(A) 0 - 2 /hpf 02/23/2025 2:30 AM CDT [facility] RBC UA 51-100(A) 0 - 2 /hpf 02/23/2025 2:30 AM CDT [facility] BACTERIA UA 1+(A) Negative /hpf 02/23/2025 2:30 AM CDT [facility] EPITHELIAL CELLS, URINE 0-5 0 - 5 /hpf 02/23/2025 2:30 AM CDT [facility] HYALINE CAST None Seen None Seen, 0-2 /lpf 02/23/2025 2:30 AM T [facility] Urine URINE SPECIMEN OBTAINED BY CLEAN CATCH PROCEDURE / Unknown Collection / Unknown 02/23/2025 2:14 AM CDT 02/23/2025 2:14 AM CDT Byron Doty MD URINE ORDERABLES Final Result Performing Organization Address City/[facility]/ZIP Co de Phone Number [facility] CLIA# [id number] [place] [address] * HCG QUALITATIVE, BLOOD (02/23/2025 1:48 AM CDT) HCG QUAL, BLOOD Negative Negative 02/23/2025 2:33 AM CDT [facility] Blood Venipuncture / Unknown 02/23/2025 1:48 AM CDT 02/23/2025 2:32 AM CDT Byron Doty MD CHEMISTRY ORDERABLES F inal Result Performing Organization Address City/[facility]/ZIP Co de Phone Number [facility] [employer] [facility] CLIA# [id number] [place] [address] * CBC WITH DIFFERENTIAL (02/23/2025 1:48 AM CDT) Only the most recent of3 resultswithin the time period is included. WBC 8.5 4.0 - 9.8 K/uL 02/23/2025 2:19 AM CDT [facility] [employer] [facility] RBC 4.67 3.90 - 4.90 M/uL 02/23/2025 2:19 AM CDT [facility] [employer] [facility] HEMOGLOBIN 14.2 11.8 - 14.8 g/dL 02/23/2025 2:19 AM CDT [facility] [employer] [facility] HEMATOCRIT 41.2 35.5 - 44.0 % 02/23/2025 2:19 AM CDT [facility] MCV 88.2 82.0 - 99.0 fL 02/23/2025 2:19 AM CDT [facility] [employer] [facility] MCH 30.4 27.2 - 32.6 pg 02/23/2025 2:19 AM CDT [facility] LABORATORY SERVICES - [facility] MCHC 34.5 31.5 - 35.5 g/dL 02/23/2025 2:19 AM CDT [facility] LABORATORY SERVICES - [facility] RDW 12.2 11.5 - 14.5 % 02/23/2025 2:19 AM CDT [facility] LABORATORY SERVICES - [facility] RDW-STDEV 39.1 37.1 - 48.7 fL 02/23/2025 2:19 AM CDT [facility] LABORATORY SERVICES - [facility] PLATELETS 341 140 - 350 K/uL 02/23/2025 2:19 AM CDT [facility] LABORATORY SERVICES - [facility] MPV 11.3 9.3 - 12.4 fL 02/23/2025 2:19 AM CDT [facility] LABORATORY SERVICES - [facility] NEUTROPHILS 49 % 02/23/2025 2:19 AM CDT [employer] LABORATORY SERVICES - [facility] LYMPHOCYTES 40 % 02/23/2025 2:19 AM CDT [facility] LABORATORY SERVICES - [facility] MONOCYTES 9 % 02/23/2025 2:19 AM CDT [facility] LABORATORY SERVICES - [facility] EOSINOPHILS 1 % 02/23/2025 2:19 AM CDT [facility] LABORATORY SERVICES - [facility] BASOPHILS 1 % 02/23/2025 2:19 AM CDT [facility] LABORATORY SERVICES - [facility] IMMATURE GRANULOCYTES 0 % 02/23/2025 2:19 AM CDT [facility] LABORATORY SERVICES [facility] NEUTROPHIL ABSOLUTE 4.16 1.90 - 7.00 K/uL 02/23/2025 2:19 AM CDT [facility] LABORATORY SERVICES [facility] LYMPHOCYTE ABSOLUTE 3.39 0.70 - 4.50 K/uL 02/23/2025 2:19 AM CDT [facility] LABORATORY SERVICES [facility] MONOCYTE ABSOLUTE 0.75 0.10 - 1.30 K/uL 02/23/2025 2:19 AM CDT [facility] LABORATORY SERVICES [facility] EOSINOPHIL ABSOLUTE 0.12 0.00 - 0.70 K/uL 02/23/2025 2:19 AM CDT [facility] LABORATORY SERVICES [facility] BASOPHILS ABSOLUTE 0.08 0.00 - 0.20 K/uL 02/23/2025 2:19 AM CDT [facility] LAB[facility]ORY [facility] IMMATURE GRANULOCYTES ABSOLUTE 0.02 0.00 - 0.03 K/uL 02/23/2025 2:19 AM CDT [facility] Blood Venipuncture / Unknown 02/23/2025 1:48 AM CDT 02/23/2025 2:18 AM CDT Byron Doty MD HEMATOLOGY ORDERABLES Final Result [facility] CLIA# [id number] [place] [address] * COMPREHENSIVE METABOLIC PANEL (02/23/2025 1:48 AM CDT) Only the most recent of3 resultswithin the time period is included. SODIUM 139 136 - 145 mmol/L 02/23/2025 2:44 AM CDT [facility] POTASSIUM 3.6 3.4 - 5.1 mmol/L 02/23/2025 2:44 AM CDT [facility] CHLORIDE 102 98 - 107 mmol/L 02/23/2025 2:44 AM CDT [facility] CO2 24 22 - 29 mmol/L 02/23/2025 2:44 AM CDT [facility] CALCIUM 9.4 8.6 - 10.4 mg/dL 02/23/2025 2:44 AM CDT [facility] BUN 10 6 - 20 mg/dL 02/23/2025 2:44 AM CDT [facility] CREATININE 0.91 0.51 - 0.95 mg/dL 02/23/2025 2:44 AM CDT [facility]ORY [facility] GLUCOSE 99 74 - 99 mg/dL 02/23/2025 2:44 AM CDT [facility] LAB[facility]ORY [facility] TOTAL PROTEIN 7.2 6.3 - 8.7 g/dL 02/23/2025 2:44 AM CDT [facility] ALBUMIN 4.5 3.5 - 5.2 g/dL 02/23/2025 2:44 AM CDT [facility] BILIRUBIN TOTAL 0.2 0.0 - 1.2 mg/dL 02/23/2025 2:44 AM CDT [facility] ALKALINE PHOSPHATASE 66 40 - 150 U/L 02/23/2025 2:44 AM CDT [facility] AST 14 0 - 33 U/L 02/23/2025 2:44 AM CDT [facility] ALT 16 0 - 33 U/L 02/23/2025 2:44 AM CDT [facility] GFR >60 >=60 mL/min/1.7 3 sq meter 02/23/2025 2:44 AM CDT [facility] Comment:eGFR calculated with 2020 CKD-EPI equation. Vegetarian diet, extremely high or low muscle mass, and may affect results. Cystatin C with Glomerular Filtration Rate is a suitable alternative for these patients. ANION GAP 13 8 - 16 mmol/L 02/23/2025 2:44 AM CDT [facility] Blood Venipuncture / Unknown 02/23/2025 1:48 AM CDT 02/23/2025 2:16 AM CDT Byron Doty MD CHEMISTRY ORDERABLES F inal Result [facility] CLIA# [id number] [place] [address] * US PELVIC TRANSVAGINAL + DOPPLER (01/20/2025 7:19 AM CDT) Anatomical Region Laterality Modality Pelvis Ultrasound 01/20/2025 7:19 AM CDT Impressions 01/20/2025 7:23 AM CDT IMPRESSION: 1. No evidence of ovarian torsion. DICTATION LOCATION: Location [address] [place] [address] Narrative 01/20/2025 7:23 AM CDT EXAMINATION: US [...] No evidence of ovarian torsion. DICTATION LOCATION: [address] us Rip Thornton MD US ORDERABLES Final Result * CT ABDOMEN PELVIS W CONTRAST (01/20/2025 5:59 AM CDT) Only the most recent of2 resultswithin the time period is included. Anatomical Region Laterality Modality Abdomen Computed Tomogra phy 01/20/2025 5:40 AM CDT Impressions 01/20/2025 6:06 AM CDT IMPRESSION: 1. Mild bilateral hydronephrosis possibly due to mild bladder distention. DICTATION LOCATION: Location [address] [place] [address] 01/20/2025 6:[address] ABDOMEN PELVIS [...] mild bladder distention. DICTATION LOCATION: Location [address] ORDERABLES Final Result * HCG QUALITATIVE, URINE (01/20/2025 3:02 AM CDT) Only the most recent of2 resultswithin the time period is included. HCG QUAL URINE Negative Negative 01/20/2025 4:43 AM CDT [facility] COLOR UA Yellow Pale to Dark Yellow 01/20/2025 4:43 AM CDT [facility] CLARITY UA Clear Clear 01/20/2025 4:43 AM CDT [facility] Urine URINE SPECIMEN OBTAINED BY CLEAN CATCH PROCEDURE / Unknown Collection / Unknown 01/20/2025 3:02 AM CDT 01/20/2025 4:42 AM CDT us Rip Thornton MD URINE ORDERABLES Final Result [facility] CLIA# [id number] [address] [place] [address] * EKG 12-LEAD (01/20/2025 1:12 AM CDT) 01/20/2025 1:12 AM CDT Narrative INTERFACE SYSTEM - 01/20/2025 6:50 [place] [address] Test Date: 2025-01-20 Pat Name: [facility] Department: 92 Room: Gender: Female Plaster Machine Tender: paras : 2005 Requested By: Order Number: [id number] Dimitri MD: Sebastian العراقي Measurements Intervals [place] Rate: 138 P: 0 NE: 0 QRS: 52 QRSD: 64 T: 66 QT: 364 QTc: 551 Interpretive Statements Sinus tachycardia Nonspecific ST abnormality Abnormal ECG No previous ECG available for comparison Electronically Signed On 01-20-2025 6:50:28 CDT by Sebastian العراقي Procedure Note Provider, Historical - 01/20/2025 [place] [address] Test Date: 2025-01-20 Pat Name: [facility] Department: 92 Room: Gender: Female Plaster Machine Tender: paras : 2005 Requested By: Order Number: [id number] Reading MD: Sebastian العراقي Measurements Intervals [place] Rate: 138 P: 0 NE: 0 QRS: 52 QRSD: 64 T: 66 QT: 364 QTc: 551 Interpretive Statements Sinus tachycardia Nonspecific ST abnormality Abnormal ECG No previous ECG available for comparison Electronically Signed On 01-20-2025 6:50:28 CDT by Sebastian العراقي us Rip Thornton MD ECG ORDERABLES Final Result Performing Organization Address City/[facility]/ZIP Co de Phone Number INTERFACE SYSTEM Refer to clinic/hospital department * LIPASE (12/29/2024 1:24 AM CDT) LIPASE 52 13 - 60 U/L 12/29/2024 2:26 AM CDT [facility] LABORATORY SERVICES [facility] Blood Venipuncture / Unknown 12/29/2024 1:24 AM CDT 12/29/2024 1:38 AM CDT us Sinai Rosales MD CHEMISTRY ORDERABLES Final R esult [facility] CLIA# [id number] [place] [address] from Last 3 Months Insurance [facility] [employer] CHOICE [id number] [facility] TRADITIONAL Advance Directives For more information, please contact: [phone] * Full Code (Latest Code Status on File) Date Activated Date Inactivated Comments 05/11/2024 1:40 AM 05/16/2024 12:32 AM Care Teams Store Assistant Relationship Specialty Start Date End Date Michael Nelson MD [address] [place] [address] PCP - General Family Practice 05/11/24
--- OUTSIDE RECORDS SUMMARY | 2025-02-27 00:20 | XMS_ITS | Encounter Summary ---
Author Organization [facility] Address [address] [place] [address] Care Team Providers Care Certified Orthoptist Name Role Phone Michael Nelson MD Primary Care Provider [phone] Encounter Details Date Type Department Care Team (Late Contact Info) Description 07/25/2024 [email or web address] Message Enc [address], [address] [place] [address] Daria, [facility] Provider appt change Social History Tobacco Use Types Packs/Day Years Used Date Smoking Tobacco: Never Passive Smoke Exposure: Past Smokeless Tobacco: Never Alcohol Use Standard Drinks/Week Comments Never 0 (1 standard drink = 0.6 oz pur e alcohol) PHQ-2 Answer Date Recorded Patient Health Questionnaire-2 Score 0 06/22/2023 Comments No Sex and Gender Information Value Date Recorded Sex Assigned at Female 07/18/2023 2:37 PM BEHAVIORAL HEALTH TECHNICIAN Legal Sex Male 9:07 PM CDT Gender Identity Transgender Male 07/18/2023 2:37 PM BEHAVIORAL HEALTH TECHNICIAN Sexual Orientation Bisexual 07/18/2023 2: 37 PM BEHAVIORAL HEALTH TECHNICIAN documented as of this encounter Plan of Treatment Upcoming Encounters Date Type Department Care Team (Late Contact Info) Description 06/09/2025 8:00 AM BEHAVIORAL HEALTH TECHNICIAN [facility] [address] [place] [address] Jean-Claude Alejandro MD [address] [place] [address] 07/08/2025 8:00 AM BEHAVIORAL HEALTH TECHNICIAN Office Visit [facility] Medical Group Multispecialty Care - [facility] [address] [facility], [address] [place] [address] Jean-Claude Alejandro MD [address] [place] [address] documented as of this encounter Visit Diagnoses Not on filedocumented in this encounter Care Teams Certified Orthoptist Relationship Specialty Start Date End Date Michael Nelson MD [address] [place] [phone] PCP - General HOSPITALIST 06/22/23 documented as of this encounter
--- OUTSIDE RECORDS SUMMARY | 2025-02-27 00:20 | XMS_ITS | Encounter Summary ---
Author Organization [facility] Address [address] [place] [address] Care Team Providers Care Event Coordinator Name Role Phone Michael Nelson MD Primary Care Provider [phone] Encounter Details Date Type Department Care Team [...] Sex Assigned at Female 05/11/2024 12:18 AM AIR DUCT MECHANIC Legal Sex Female 3:21 AM AIR DUCT MECHANIC Gender Identity Male 05/11/2024 12:18 AM AIR DUCT MECHANIC Sexual Orientation Not on file documented as of this encounter Plan of Treatment Upcoming Encounters Date Type Department Care Team (Late st Contact Info) Description 03/13/2025 3:30 PM CDT Office Visit [facility] GASTROENTEROLOGY - [address] [address] [address] [address] [place] [address] [place] [address] [address] [place] [address] documented as of this encounter Visit Diagnoses Not on filedocumented in this encounter Care Teams Event Coordinator Relationship Specialty Start Date End Date Michael Nelson MD [address] [place] [phone] PCP - General Family Practice 05/11/24 documented as of this encounter
--- OUTSIDE RECORDS SUMMARY | 2025-02-27 00:20 | XMS_ITS | Encounter Summary ---
Author Organization [facility] Address [address] [place] [address] Care Team Providers Care Predatory Animal Trapper Name Role Phone Michael Nelson MD Primary Care Provider Encounter Details Date Type Department Care Team [...] Sex Assigned at Female 05/11/2024 12:18 AM BAGGAGE CHECKER Legal Sex Female 3:21 AM BAGGAGE CHECKER Gender Identity Male 05/11/2024 12:18 AM BAGGAGE CHECKER Sexual Orientation Not on file documented as of this encounter Plan of Treatment Upcoming Encounters Date Type Department Care Team (Late st Contact Info) Description 03/13/2025 3:30 PM CDT Office Visit [facility] GASTROENTEROLOGY - [address] [address] [address] [address] [place] [address] [place] [address] [address] [place] [address] documented as of this encounter Visit Diagnoses Not on filedocumented in this encounter Care Teams Predatory Animal Trapper Relationship Specialty Start Date End Date Michael Nelson MD [address] [place] [phone] PCP - General Family Practice 05/11/24 documented as of this encounter
--- OUTSIDE RECORDS SUMMARY | 2025-02-27 00:20 | XMS_ITS | Encounter Summary ---
Author Organization [facility] Address [facility] [place] [address] Care Team Providers Care Commercial Illustrator Name Role Phone Michael Nelson MD Primary Care Provider [phone] Encounter Details Date Type Department Care Team (Latest Contact Info) Description 01/07/2025 MyChart Message Enc [facility] Medical Group Multispecialty Care - [facility] [address] [facility], [address] [place] [phone] Jean-Claude Alejandro MD [address] [place] [address] Medication Refill Social History Tobacco Use Types Packs/Day Years Used Date Smoking Tobacco: Never Passive Smoke Exposure: Past Smokeless Tobacco: Never Alcohol Use Standard Drinks/Week Comments Never 0 (1 standard drink = 0.6 oz pur e alcohol) PHQ-2 Answer Date Recorded Patient Health Questionnaire-2 Score 0 06/22/2023 Comments No Sex and Gender Information Value Date Recorded Sex Assigned at Female 07/18/2023 2:37 PM INSIDE SALES ENGINEER Legal Sex Male 9:07 PM CDT Gender Identity Transgender Male 07/18/2023 2:37 PM INSIDE SALES ENGINEER Sexual Orientation Bisexual 07/18/2023 2: 37 PM INSIDE SALES ENGINEER documented as of this encounter Plan of Treatment Upcoming Encounters Date Type Department Care Team (Late st Contact Info) Description 06/09/2025 8:00 AM INSIDE SALES ENGINEER [facility] [address] [facility], [address] [place] [phone] Jean-Claude Alejandro MD [address] [place] [address] 07/08/2025 8:00 AM INSIDE SALES ENGINEER [facility] [address] [facility], [address] [place] [phone] Jean-Claude Alejandro MD [address] [place] [address] documented as of this encounter Visit Diagnoses Not on filedocumented in this encounter Care Teams Commercial Illustrator Relationship Specialty Start Date End Date Michael Nelson MD [address] [place] [phone] PCP - General HOSPITALIST 06/22/23 documented as of this encounter
--- NOTE | 2025-02-27 05:42 | WPDHPUPDATE1 ---
History and Physical Update Update Date/Time: 02/27/25 05:42 History and Physical has been reviewed, including an updated exam of the patient. There are NO changes in the patient's condition. Risks, benefits, and alternatives have been discussed and questions answered. Patient agrees to proceed with procedure.
[2025-02-27] MEDS: LACTATED RINGERS 1,000 ML 30 ML IV CONT ×2 (07:00→09:25)
--- NOTE | 2025-02-27 07:26 | WPDANESEPPF ---
Anes - Initial Pre Proc Eval Procedure: Operation Date: 02/27/25 08:30 Proposed Procedures p Diagnostic Laparoscopy with Bilateral Ovarian Cystectomy - Huseyin Cole MD Date/Time: 02/27/25 07:26 Surgeon: Huseyin Cole MD Pre Op Diagnosis: pelvic pain, Aime Ovarian Cyst Patient Data Age: 19 Gender: F Height: 1.65 m Weight: 50.4 kg Allergies Allergy/AdvReac Type Severity Reaction Status Date / Time Sulfa (Sulfonamide Allergy Severe Swelling Verified 02/19/25 17:35 Antibiotics) of Lip/Tongue/Throat sulfamethoxazole Allergy Severe Swelling Verified 02/19/25 17:35 of Lip/Tongue/Throat gluten Allergy Nausea Verified 02/19/25 17:35 Home Medications ?Medication ?Instructions ?Recorded ?Confirmed ?Type norethindrone (contraceptive) 0.35 0.35 mg PO DAILY 01/19/23 02/19/25 History mg tablet trazodone 50 mg tablet 50 mg PO HS 01/19/23 02/19/25 History pantoprazole 20 mg tablet,delayed 20 mg PO HS 4 weeks #28 tabs 10/15/23 02/19/25 Rx release (Protonix) cholecalciferol (vitamin D3) 25 25 mcg PO DAILY 02/19/25 02/19/25 History mcg (1,000 unit) capsule (Vitamin D3) lacosamide 100 mg tablet 100 mg PO Q12H 02/19/25 02/19/25 History magnesium citrate 125 mg capsule 125 mg PO DAILY 02/19/25 02/19/25 History riboflavin (vitamin B2) 400 mg 400 mg PO DAILY 02/19/25 02/19/25 History tablet ubrogepant 100 mg tablet (Ubrelvy) 100 mg PO DAILY PRN migraine 02/19/25 02/19/25 History headache hydrocodone 5 mg-acetaminophen 325 1 tablet PO Q4H PRN pain #20 tabs 02/27/25 Rx mg tablet Patient hx anesthesia problems: none Family hx anesthesia problems: none Results Review: All pre-operative results and documents have been reviewed as part of the pre-operative evaluation. [facility], [facility] Past Medical History Medical History (Updated 02/26/25 @ 14:55 by Taurus Thornton DO) Asthma TBI (traumatic brain injury) TIA (transient ischemic attack) Migraines Seizure disorder Anxiety History of sinus problem Depression Surgical History Surgical History History of tonsillectomy and adenoidectomy Social History Social History Smoking status: Never smoker Alcohol intake: never Substance use: never Substance use type: does not use Lack of Transportation: YES Lack of Food: Never True Current Housing: I Have Housing Concerned About Future Housing: No Difficulty Paying Gas/Electric Bills: No Difficulty Paying for Meds: No Currently Unemployed: YES Education: High School Diploma/GED Difficulty w/ Childcare or Family Care: No Gender identity (if verbalized by the patient): Female Spiritual care concerns: No Anes - Eval Final PreProcedure Day of Procedure 02/27/25 07:26 Patient weight: normal Heart: regular rate and rhythm Lungs: clear to auscultation Airway: Mallampati scale class II Neurological: alert and oriented Last oral intake: >/= 8 hours ASA classification: III Emergent: no Anesthetic plan: proceed Anesthesia type and monitoring: general ETT and standard monitoring Results Review: All pre-operative results and documents have been reviewed as part of the pre-operative evaluation. Informed Consent: The patient's anesthetic plan and its attendant risks and benefits were discussed with the patient/family/POA. Questions were solicited and answers provided to the satisfaction of the patient/family/POA.
[2025-02-27] MEDS: ACETAMINOPHEN 500 MG TABLET 1000 MG PO (07:37)
[2025-02-27] MEDS: KETOROLAC 15 MG/ML VIAL (*BKC) IV PUSH (07:37)
[2025-02-27 07:43] LABS: BEDSIDEPREGUCG Negative (Negative)
--- NOTE | 2025-02-27 09:03 | P.OP_ITS ---
Procedure Note - Detailed Date of Procedure 02/27/25 Pre-op Diagnosis pelvic pain, Aime Ovarian Cyst Post-op Diagnosis Same Procedure Performed Laparoscopy with bilateral ovarian cyst destruction and lysis of adhesions Surgeon Huseyin Cole MD Anesthesia General Indications This is a 19-year-old with a history of pelvic pain and ovarian cyst seen on ultrasound Findings Fairly large left ovarian cyst which was follicular in nature and full of 35cc of serosanguineous fluid small right ovarian cyst. Normal-appearing uterus ovaries tubes and liver and gallbladder as well. Appendix appeared within normal limits Description of Procedure Patient was prepped and draped in the normal sterile fashion placed in the dorsal lithotomy position. Under excellent general trach anesthesia weighted speculum placed in posterior fornix vagina. Anterior lip of the cervix grasped with single-tooth tenaculum. Sams's cannula inserted attached to the single- tooth to be used later for uterine manipulation. After emptying the bladder of clear urine the weighted speculum was removed the gloves were changed. An infraumbilical incision made the Veress needle passed in the abdomen. Abdomen filled with CO2 gas to 15mm of. The 5mm trocar advanced with the Optiview no injury seen. Patient placed in Trendelenburg and a suprapubic incision made. The 5mm trocar advanced under direct visualization assuring no injury. Was fluid pelvis suction 10cc cyst was seen very noncancerous appearance was cc of serosanguineous fluid there was a small right ovarian cyst this was opened in linear. Adhesions were seen from to the left lateral sharp dissection undertaken this was irrigation undertaken until clear. The lower sites removed. The gas removed from the abdomen. The upper site removed. The incisions closed with 4 Monocryl glue patient went to recovery in satisfactory condition. All sponge, instrument were correct. Were complications Estimated Blood Loss 5 Drains No Packing No Pathology None sent Complications No immediate complications Condition Stable Disposition PACU
[2025-02-27] MEDS: oxyCODONE HCL (*CRX) 5 MG TAB IR PO (11:01)
== END 2025-02-27 12:03 | disposition home or self-care (01) ==
PROVIDERS: PCP Family Medicine; Visit Provider Obstetrics & Gynecology
PROC: (CPT 49320; principal; 2025-02-27 08:30)
DX: N83.291 Other ovarian cyst, right side (principal); N83.02 Follicular cyst of left ovary; N73.6 Female pelvic peritoneal adhesions (postinfective); F41.9 Anxiety disorder, unspecified; F32.A Depression, unspecified; G40.909 Epilepsy, unspecified, not intractable, without status epilepticus; Z79.891 Long term (current) use of opiate analgesic; Z98.890 Other specified postprocedural states; J45.909 Unspecified asthma, uncomplicated; Z86.73 Personal history of transient ischemic attack (TIA), and cerebral infarction without residual deficits
CPT/HCPCS: 58662; A9270; J1100; J1200; J1885; J2003; J2250; J2405; J2704; J3010; J7120